=== PATIENT | female | born 1950 | race Caucasian/White ===

== ENCOUNTER 2018-05-22 11:58 | Inpatient (IN) | payer OTHER, MEDICAID ==
[~2018-05-22] VITALS: Ht 157.5 cm; Wt 94.8 kg
[2018-05-22 11:58] VITALS: BP_SYST 138
[2018-05-22] MEDS ORDERED: ASPIRIN 81 MG TAB.CHEW PO ONE (12:15)
[2018-05-22] MEDS ORDERED: NITROGLYCERIN 1 INCH (GM) OINT. TP ONE (12:15)
[2018-05-22] MEDS ORDERED: ASPI-1153 PO (12:18)
[2018-05-22] MEDS ORDERED: SERT100T PO (12:18)
[2018-05-22] MEDS ORDERED: DOCU250C14 PO (12:18)
[2018-05-22] MEDS ORDERED: INSU100V11 SQ (12:18)
[2018-05-22] MEDS ORDERED: CHOL500037 PO (12:18)
[2018-05-22] MEDS ORDERED: HYDR-1189 PO (12:18)
[2018-05-22] MEDS ORDERED: FURO-149 PO (12:18)
[2018-05-22] MEDS ORDERED: SEVE800T8 PO (12:18)
[2018-05-22] MEDS ORDERED: CAT.1 PO (12:18)
[2018-05-22] MEDS ORDERED: INSU10VI4 SUBCUT (12:18)
[2018-05-22] MEDS ORDERED: LIDP TP (12:18)
[2018-05-22] MEDS ORDERED: FOLI-43 PO (12:18)
[2018-05-22] MEDS ORDERED: NEPH PO (12:18)
[2018-05-22] MEDS ORDERED: ONDA4TAB5 PO (12:18)
[2018-05-22] MEDS ORDERED: HYDR-4038 PO (12:18)
[2018-05-22] MEDS ORDERED: DIPH25CA83 PO (12:18)
[2018-05-22] MEDS ORDERED: GABA-529 PO (12:18)
[2018-05-22 13:12] LABS: BASOPHILS % (AUTO) 0.3 % (0.0-2.0); EOSINOPHILS # (AUTO) 0.2 K/uL (0.0-0.4); EOSINOPHILS % (AUTO) 2.4 % (0.0-4.0); HEMOGLOBIN 10.4 g/dL (12.0-16.0); LYMPHOCYTES # (AUTO) 0.9 K/uL (1.0-5.5); LYMPHOCYTES % (AUTO) 12.1 % (20.5-51.5); MEAN CORPUSCULAR HEMOGLOBIN 35 pg (27-31); MEAN CORPUSCULAR HGB CONC 35 % (32-36); MEAN CORPUSCULAR VOLUME 101 fL (79.0-98.0); MONOCYTES # (AUTO) 0.6 K/uL (0.0-1.0); MONOCYTES % (AUTO) 7.7 % (1.7-9.3); NEUTROPHILS # (AUTO) 5.9 K/uL (1.8-7.7); NEUTROPHILS % (AUTO) 77.5 % (40.0-70.0); PLATELET COUNT (AUTO) 54 K/uL (130-430); RED BLOOD CELL COUNT(AUTO) 2.97 MIL/uL (4.2-6.2); RED CELL DISTRIBUTION WIDTH 13.6 % (9.0-15.0); WHITE BLOOD COUNT (AUTO) 7.7 K/uL (4.8-10.8)
[2018-05-22 13:19] LABS: COLOR,URINE YELLOW (YELLOW)
[2018-05-22 13:20] LABS: BILIRUBIN,URINE NEGATIVE (NEGATIVE); BLOOD, URINE TRACE (NEGATIVE); CLARITY/URINE CLOUDY (CLEAR); GLUCOSE,URINE NEGATIVE (NEGATIVE); KETONES,URINE NEGATIVE (NEGATIVE); LEUKOCYTE ESTERASE ,URINE 2+ (NEGATIVE); NITRITE, URINE NEGATIVE (NEGATIVE); PH,URINE 6.5 (5.0-8.0); PROTEIN URINE 3+ (NEGATIVE); UROBILINOGEN,URINE NEGATIVE (0.2-1.0)
[2018-05-22 13:29] LABS: INR 1.1 (0.8-1.2)
[2018-05-22 13:32] LABS: CALCIUM 8.5 mg/dL (8.4-11.0); CREATININE 5.16 mg/dL (0.55-1.30); POTASSIUM 4.1 mmol/L (3.5-5.1)
[2018-05-22 13:36] LABS: TOTAL BILIRUBIN 1.7 mg/dL (0.0-1.0)
[2018-05-22 13:42] LABS: BACTERIA,URINE MANY /HPF (None Seen); WBC,URINE 50-80 /HPF (0-3)
[2018-05-22 13:43] LABS: MUCUS,URINE None Seen /LPF (None Seen)
[2018-05-22] MEDS ORDERED: cefTRIAXone 1 GM IVPB PREMIX 50 ML IV ONE (14:15)
[2018-05-22] MEDS ORDERED: DIPHENHYDRAMINE HCL 25 MG CAPSULE PO PRN (16:30)
[2018-05-22] MEDS ORDERED: DEXTROSE 50% JECT 50 ML DISP.SYRIN IVP PRN (16:45)
[2018-05-22 16:55] VITALS: BP_SYST 126
[2018-05-22] MEDS ORDERED: ONDANSETRON HCL 4 MG/2 ML VIAL IVP PRN (17:00)
[2018-05-22] MEDS ORDERED: DOCUSATE SODIUM 100 MG CAPSULE PO PRN (17:00)
[2018-05-22] MEDS ORDERED: LORazepam 2 MG/ML VIAL IVP PRN (17:00)
[2018-05-22] MEDS ORDERED: MAGNESIUM SULFATE 50 ML IV PRN (17:00)
[2018-05-22] MEDS ORDERED: ZOLPIDEM TARTRATE 5 MG TABLET PO PRN (17:00)
[2018-05-22] MEDS ORDERED: MUPIROCIN 2% TOPICAL OINTMENT 22 GM NS PRN (17:00)
[2018-05-22] MEDS ORDERED: POTASSIUM CHLORIDE 20 MEQ TAB.PRT.SR PO PRN (17:00)
[2018-05-22 17:20] LABS: FREE T4 (FREE THYROXINE) 0.9 ng/dL (0.6-1.6); THYROID STIMULATING HORMONE 0.56 uIu/mL (0.34-4.82)
[2018-05-22] MEDS ORDERED: NON-FORMULARY MEDICATION (Sevelamer Carbonate (Renvela) 800 MG) PO SCH (18:00)
[2018-05-22] MEDS ORDERED: LACTOBACILLUS RHAMNOSUS GG 1 CAP CAPSULE PO ONE (19:21)
[2018-05-22] MEDS ORDERED: METOPROLOL TARTRATE 25 MG TABLET PO ONE (19:23)
[2018-05-22] MEDS ORDERED: SEVELAMER HCL 800 MG TABLET PO ONE (19:44)
[2018-05-22 20:00] VITALS: BP_SYST 131; BP_SYST 139
[2018-05-22] MEDS: LACTULOSE 20 GM/30 ML UDC PO ONE ×2 (20:06→20:14)
[2018-05-22] MEDS: LACTULOSE 20 GM/30 ML UDC PO SCH ×2 (20:07→20:14)
[2018-05-22] MEDS: hydrALAZINE HCL 25 MG TABLET PO SCH (20:11)
[2018-05-22] MEDS: FUROSEMIDE 40 MG TABLET PO SCH (20:12)
[2018-05-22] MEDS: INSULIN ASPART 100 UNITS/ML, 10 ML VIAL (NovoLOG) SUBCUT PRN (20:27)
[2018-05-22] MEDS: INSULIN Lispro Prot/Lispro MIX 75-25, 100 UNITS/ML, 10 ML VIAL SUBCUT SCH (20:28)
[2018-05-22] MEDS: DIPHENHYDRAMINE HCL/ZINC ACET 28.3 GM CREAM.GM. TP SCH (21:00)
[2018-05-23 00:20] VITALS: BP_SYST 104
[2018-05-23 01:31] LABS: BARBITURATE, URINE NEGATIVE (NEG <=200); BENZODIAZEPINE, URINE NEGATIVE (NEG <=150); CANNABINOID, URINE NEGATIVE (NEG <=50); COCAINE, URINE NEGATIVE (NEG <=150); METHAMPHETAMINES SCREEN,URINE NEGATIVE (NEG <=500); OPIATE, URINE NEGATIVE (NEG <=100); PHENCYCLIDINE SCREEN,URINE NEGATIVE (NEG <=25); UR TRICYCLIC ANTIDEPRESSANTS NEGATIVE (NEG <=300); URINE AMPHETAMINE NEGATIVE (NEG <=500); URINE METHADONE NEGATIVE (NEG <=200); URINE OXYCODONE SCREEN NEGATIVE (NEG <=100); URINE PROPOXYPHENE SCREEN NEGATIVE (NEG <=300)
[2018-05-23 05:05] LABS: BASOPHILS % (AUTO) 0.7 % (0.0-2.0); EOSINOPHILS # (AUTO) 0.3 K/uL (0.0-0.4); EOSINOPHILS % (AUTO) 4.4 % (0.0-4.0); LYMPHOCYTES % (AUTO) 17.2 % (20.5-51.5); MEAN CORPUSCULAR HEMOGLOBIN 34 pg (27-31); MEAN CORPUSCULAR HGB CONC 33 % (32-36); MEAN CORPUSCULAR VOLUME 101 fL (79.0-98.0); MONOCYTES # (AUTO) 0.7 K/uL (0.0-1.0); MONOCYTES % (AUTO) 11.4 % (1.7-9.3); PLATELET COUNT (AUTO) 61 K/uL (130-430); RED BLOOD CELL COUNT(AUTO) 2.68 MIL/uL (4.2-6.2); RED CELL DISTRIBUTION WIDTH 13.7 % (9.0-15.0)
[2018-05-23 05:19] LABS: ALBUMIN 2.6 g/dL (3.4-4.8); CALCIUM 8.2 mg/dL (8.4-11.0); CREATININE 6.09 mg/dL (0.55-1.30); PHOSPHORUS 4.7 mg/dL (2.7-4.5); POTASSIUM 4.4 mmol/L (3.5-5.1); TOTAL BILIRUBIN 1.2 mg/dL (0.0-1.0)
[2018-05-23 05:48] LABS: NEUTROPHILS % (AUTO) 66.3 % (40.0-70.0)
[2018-05-23] MEDS: INSULIN ASPART 100 UNITS/ML, 10 ML VIAL (NovoLOG) SUBCUT PRN ×4 (06:22→21:39)
[2018-05-23 08:19] LABS: T4 (THYROXINE) 4.5 ug/dL (4.5-12.0)
[2018-05-23 08:20] VITALS: BP_SYST 126
[2018-05-23] MEDS: METOPROLOL TARTRATE 25 MG TABLET PO SCH ×2 (09:00→20:23)
[2018-05-23] MEDS: LACTULOSE 20 GM/30 ML UDC PO SCH ×3 (09:00→20:23)
[2018-05-23] MEDS: hydrALAZINE HCL 25 MG TABLET PO SCH ×2 (09:00→20:24)
[2018-05-23] MEDS: DOCUSATE SODIUM 250 MG CAPSULE PO SCH (09:00)
[2018-05-23] MEDS: LIDOCAINE PATCH 5% 1 EA TP SCH (09:05)
[2018-05-23] MEDS: LACTOBACILLUS RHAMNOSUS GG 1 CAP CAPSULE PO SCH (09:06)
[2018-05-23] MEDS: FOLIC ACID 1 MG TABLET PO SCH (09:07)
[2018-05-23] MEDS: CHOLECALCIFEROL (VITAMIN D3) 2,000 UNIT TABLET PO SCH (09:07)
[2018-05-23] MEDS: SEVELAMER HCL 800 MG TABLET PO SCH ×3 (09:07→17:13)
[2018-05-23] MEDS: GABAPENTIN 100 MG CAPSULE PO SCH (09:08)
[2018-05-23] MEDS: NEPHROVITE, (FOLIC ACID/VITAMIN B COMP W-C 1 TAB) PO SCH (09:08)
[2018-05-23] MEDS: ASPIRIN 81 MG TABLET(ECOTRIN) PO SCH (09:09)
[2018-05-23] MEDS: FUROSEMIDE 40 MG TABLET PO SCH ×2 (09:09→20:21)
[2018-05-23] MEDS: cloNIDine HCL 0.1 MG TABLET PO SCH (09:12)
[2018-05-23] MEDS: SERTRALINE HCL 50 MG TABLET PO SCH (09:12)
[2018-05-23] MEDS: cefTRIAXone 1 GM in D5W 50 ML IV SCH (09:13)
[2018-05-23] MEDS: DIPHENHYDRAMINE HCL/ZINC ACET 28.3 GM CREAM.GM. TP SCH ×3 (09:14→21:38)
[2018-05-23] MEDS: INSULIN Lispro Prot/Lispro MIX 75-25, 100 UNITS/ML, 10 ML VIAL SUBCUT SCH ×2 (09:21→21:40)
[2018-05-23] MEDS ORDERED: RIFAXIMIN 550 MG TABLET PO ONE (10:45)
[2018-05-23] MEDS: NACL 0.9% 1,000 ML IV SCH (12:20)
[2018-05-23 12:45] VITALS: BP_SYST 126
[2018-05-23 17:15] VITALS: BP_SYST 115
[2018-05-23 20:00] VITALS: BP_SYST 104
[2018-05-23] MEDS: ACETAMINOPHEN 325 MG TABLET PO PRN (20:22)
[2018-05-23] MEDS: RIFAXIMIN 550 MG TABLET PO SCH (20:22)
[2018-05-23] MEDS: traZODone HCL 50 MG TABLET (DESYREL) PO PRN (22:55)
[2018-05-24] VITALS: BP_SYST 89
[2018-05-24] MEDS: ACETAMINOPHEN 325 MG TABLET PO PRN (06:38)
[2018-05-24 06:41] LABS: BASOPHILS % (AUTO) 0.7 % (0.0-2.0); EOSINOPHILS # (AUTO) 0.3 K/uL (0.0-0.4); EOSINOPHILS % (AUTO) 4.6 % (0.0-4.0); HEMATOCRIT 25.8 % (36-48); HEMOGLOBIN 8.5 g/dL (12.0-16.0); LYMPHOCYTES # (AUTO) 1.3 K/uL (1.0-5.5); LYMPHOCYTES % (AUTO) 20.2 % (20.5-51.5); MEAN CORPUSCULAR HEMOGLOBIN 34 pg (27-31); MEAN CORPUSCULAR HGB CONC 33 % (32-36); MEAN CORPUSCULAR VOLUME 102 fL (79.0-98.0); MONOCYTES # (AUTO) 0.7 K/uL (0.0-1.0); MONOCYTES % (AUTO) 10.5 % (1.7-9.3); NEUTROPHILS # (AUTO) 4.3 K/uL (1.8-7.7); RED BLOOD CELL COUNT(AUTO) 2.53 MIL/uL (4.2-6.2); RED CELL DISTRIBUTION WIDTH 13.9 % (9.0-15.0); WHITE BLOOD COUNT (AUTO) 6.6 K/uL (4.8-10.8)
[2018-05-24 07:01] LABS: CREATININE 7.04 mg/dL (0.55-1.30); PHOSPHORUS 5.6 mg/dL (2.7-4.5); POTASSIUM 4.7 mmol/L (3.5-5.1)
[2018-05-24 08:15] VITALS: BP_SYST 123
[2018-05-24] MEDS: METOPROLOL TARTRATE 25 MG TABLET PO SCH ×2 (08:24→20:19)
[2018-05-24] MEDS: hydrALAZINE HCL 25 MG TABLET PO SCH ×2 (08:24→20:19)
[2018-05-24] MEDS: cloNIDine HCL 0.1 MG TABLET PO SCH (08:24)
[2018-05-24 08:28] LABS: PLATELET COUNT (AUTO) 70 K/uL (130-430)
[2018-05-24] MEDS: SERTRALINE HCL 50 MG TABLET PO SCH (08:33)
[2018-05-24] MEDS: RIFAXIMIN 550 MG TABLET PO SCH ×2 (08:33→20:17)
[2018-05-24] MEDS: NEPHROVITE, (FOLIC ACID/VITAMIN B COMP W-C 1 TAB) PO SCH (08:33)
[2018-05-24] MEDS: GABAPENTIN 100 MG CAPSULE PO SCH (08:34)
[2018-05-24] MEDS: cefTRIAXone 1 GM in D5W 50 ML IV SCH (08:34)
[2018-05-24] MEDS: LACTULOSE 20 GM/30 ML UDC PO SCH ×3 (08:34→20:21)
[2018-05-24] MEDS: LACTOBACILLUS RHAMNOSUS GG 1 CAP CAPSULE PO SCH (08:34)
[2018-05-24] MEDS: CHOLECALCIFEROL (VITAMIN D3) 2,000 UNIT TABLET PO SCH (08:34)
[2018-05-24] MEDS: SEVELAMER HCL 800 MG TABLET PO SCH ×3 (08:34→17:07)
[2018-05-24] MEDS: FOLIC ACID 1 MG TABLET PO SCH (08:34)
[2018-05-24] MEDS: LIDOCAINE PATCH 5% 1 EA TP SCH (08:35)
[2018-05-24] MEDS: FUROSEMIDE 40 MG TABLET PO SCH ×2 (08:36→20:20)
[2018-05-24] MEDS: DOCUSATE SODIUM 250 MG CAPSULE PO SCH (08:42)
[2018-05-24] MEDS: ASPIRIN 81 MG TABLET(ECOTRIN) PO SCH (08:42)
[2018-05-24] MEDS: INSULIN Lispro Prot/Lispro MIX 75-25, 100 UNITS/ML, 10 ML VIAL SUBCUT SCH ×2 (08:46→20:58)
[2018-05-24] MEDS: DIPHENHYDRAMINE HCL/ZINC ACET 28.3 GM CREAM.GM. TP SCH ×3 (08:57→21:02)
[2018-05-24] MEDS: NACL 0.9% 1,000 ML IV SCH (10:45)
[2018-05-24] MEDS: NEOMYCIN SULFATE 500 MG TABLET PO SCH ×3 (11:45→23:38)
[2018-05-24] MEDS: INSULIN ASPART 100 UNITS/ML, 10 ML VIAL (NovoLOG) SUBCUT PRN ×3 (11:46→21:01)
[2018-05-24] MEDS: HYDROcodone/ACETAMIN 5-325 MG TAB (NORCO/ VICODIN) PO PRN ×2 (12:12→20:18)
[2018-05-24 12:21] VITALS: BP_SYST 123
[2018-05-24 16:57] VITALS: BP_SYST 139
[2018-05-24] MEDS: traZODone HCL 50 MG TABLET (DESYREL) PO PRN (22:49)
[2018-05-25 00:10] VITALS: BP_SYST 102
[2018-05-25] MEDS: NEOMYCIN SULFATE 500 MG TABLET PO SCH ×3 (05:52→17:35)
[2018-05-25 07:52] LABS: EOSINOPHILS # (AUTO) 0.3 K/uL (0.0-0.4); EOSINOPHILS % (AUTO) 5.1 % (0.0-4.0); HEMATOCRIT 25.9 % (36-48); MONOCYTES # (AUTO) 0.6 K/uL (0.0-1.0); RED BLOOD CELL COUNT(AUTO) 2.56 MIL/uL (4.2-6.2); WHITE BLOOD COUNT (AUTO) 6.3 K/uL (4.8-10.8)
[2018-05-25 08:09] LABS: CREATININE 5.61 mg/dL (0.55-1.30); PHOSPHORUS 5.3 mg/dL (2.7-4.5); POTASSIUM 4.2 mmol/L (3.5-5.1)
[2018-05-25 08:35] LABS: BASOPHILS % (AUTO) 0.7 % (0.0-2.0); HEMOGLOBIN 8.6 g/dL (12.0-16.0); LYMPHOCYTES # (AUTO) 1.2 K/uL (1.0-5.5); LYMPHOCYTES % (AUTO) 19.2 % (20.5-51.5); MEAN CORPUSCULAR HEMOGLOBIN 34 pg (27-31); MEAN CORPUSCULAR HGB CONC 33 % (32-36); MEAN CORPUSCULAR VOLUME 101 fL (79.0-98.0); MONOCYTES % (AUTO) 10.3 % (1.7-9.3); NEUTROPHILS # (AUTO) 4.2 K/uL (1.8-7.7); NEUTROPHILS % (AUTO) 64.7 % (40.0-70.0); RED CELL DISTRIBUTION WIDTH 13.7 % (9.0-15.0)
[2018-05-25] MEDS: LACTULOSE 20 GM/30 ML UDC PO SCH ×3 (09:00→20:22)
[2018-05-25] MEDS: cefTRIAXone 1 GM in D5W 50 ML IV SCH (09:24)
[2018-05-25] MEDS: cloNIDine HCL 0.1 MG TABLET PO SCH (09:26)
[2018-05-25] MEDS: RIFAXIMIN 550 MG TABLET PO SCH ×2 (09:27→20:19)
[2018-05-25] MEDS: CHOLECALCIFEROL (VITAMIN D3) 2,000 UNIT TABLET PO SCH (09:27)
[2018-05-25] MEDS: ASPIRIN 81 MG TABLET(ECOTRIN) PO SCH (09:27)
[2018-05-25] MEDS: LACTOBACILLUS RHAMNOSUS GG 1 CAP CAPSULE PO SCH (09:27)
[2018-05-25] MEDS: SERTRALINE HCL 50 MG TABLET PO SCH (09:27)
[2018-05-25] MEDS: FOLIC ACID 1 MG TABLET PO SCH (09:28)
[2018-05-25] MEDS: GABAPENTIN 100 MG CAPSULE PO SCH (09:28)
[2018-05-25] MEDS: NEPHROVITE, (FOLIC ACID/VITAMIN B COMP W-C 1 TAB) PO SCH (09:28)
[2018-05-25] MEDS: hydrALAZINE HCL 25 MG TABLET PO SCH ×2 (09:29→20:20)
[2018-05-25] MEDS: INSULIN Lispro Prot/Lispro MIX 75-25, 100 UNITS/ML, 10 ML VIAL SUBCUT SCH ×2 (09:30→20:37)
[2018-05-25] MEDS: DIPHENHYDRAMINE HCL/ZINC ACET 28.3 GM CREAM.GM. TP SCH ×3 (09:31→20:40)
[2018-05-25] MEDS: SEVELAMER HCL 800 MG TABLET PO SCH ×3 (09:40→17:35)
[2018-05-25] MEDS: FUROSEMIDE 40 MG TABLET PO SCH ×2 (09:41→20:21)
[2018-05-25] MEDS: METOPROLOL TARTRATE 25 MG TABLET PO SCH ×2 (09:41→20:22)
[2018-05-25] MEDS: DOCUSATE SODIUM 250 MG CAPSULE PO SCH (09:42)
[2018-05-25 11:55] LABS: PLATELET COUNT (AUTO) 63 K/uL (130-430)
[2018-05-25] MEDS: INSULIN ASPART 100 UNITS/ML, 10 ML VIAL (NovoLOG) SUBCUT PRN ×3 (12:40→20:39)
[2018-05-25] MEDS: NACL 0.9% 1,000 ML IV SCH (12:52)
[2018-05-25] MEDS: HYDROcodone/ACETAMIN 5-325 MG TAB (NORCO/ VICODIN) PO PRN ×2 (14:10→21:28)
[2018-05-25 16:00] VITALS: BP_SYST 105
[2018-05-25] MEDS: LIDOCAINE PATCH 5% 1 EA TP SCH (17:36)
[2018-05-25 17:40] VITALS: BP_SYST 105
[2018-05-26 00:05] VITALS: BP_SYST 116
[2018-05-26] MEDS: NEOMYCIN SULFATE 500 MG TABLET PO SCH ×5 (00:13→23:07)
[2018-05-26] MEDS: HYDROcodone/ACETAMIN 5-325 MG TAB (NORCO/ VICODIN) PO PRN ×3 (04:42→22:13)
[2018-05-26] MEDS: INSULIN ASPART 100 UNITS/ML, 10 ML VIAL (NovoLOG) SUBCUT PRN ×4 (05:48→22:09)
[2018-05-26 06:32] LABS: BASOPHILS # (AUTO) 0.1 K/uL (0.0-0.2); BASOPHILS % (AUTO) 1.2 % (0.0-2.0); EOSINOPHILS # (AUTO) 0.3 K/uL (0.0-0.4); EOSINOPHILS % (AUTO) 5.1 % (0.0-4.0); HEMATOCRIT 26.3 % (36-48); LYMPHOCYTES # (AUTO) 0.8 K/uL (1.0-5.5); LYMPHOCYTES % (AUTO) 14.8 % (20.5-51.5); MEAN CORPUSCULAR HEMOGLOBIN 34 pg (27-31); MEAN CORPUSCULAR HGB CONC 34 % (32-36); MEAN CORPUSCULAR VOLUME 102 fL (79.0-98.0); MONOCYTES # (AUTO) 0.6 K/uL (0.0-1.0); MONOCYTES % (AUTO) 10.1 % (1.7-9.3); NEUTROPHILS # (AUTO) 3.9 K/uL (1.8-7.7); NEUTROPHILS % (AUTO) 68.8 % (40.0-70.0); RED BLOOD CELL COUNT(AUTO) 2.59 MIL/uL (4.2-6.2); RED CELL DISTRIBUTION WIDTH 13.9 % (9.0-15.0); WHITE BLOOD COUNT (AUTO) 5.7 K/uL (4.8-10.8)
[2018-05-26 06:46] LABS: CALCIUM 8.1 mg/dL (8.4-11.0); CREATININE 6.65 mg/dL (0.55-1.30); PHOSPHORUS 6.2 mg/dL (2.7-4.5); POTASSIUM 4.5 mmol/L (3.5-5.1)
[2018-05-26 07:21] LABS: HEMOGLOBIN 8.9 g/dL (12.0-16.0)
[2018-05-26 08:00] VITALS: BP_SYST 138
[2018-05-26] MEDS: LACTULOSE 20 GM/30 ML UDC PO SCH ×3 (09:00→22:00)
[2018-05-26] MEDS: cefTRIAXone 1 GM in D5W 50 ML IV SCH (09:52)
[2018-05-26] MEDS: LIDOCAINE PATCH 5% 1 EA TP SCH (09:52)
[2018-05-26] MEDS: CHOLECALCIFEROL (VITAMIN D3) 2,000 UNIT TABLET PO SCH (09:53)
[2018-05-26] MEDS: SEVELAMER HCL 800 MG TABLET PO SCH ×3 (09:53→17:47)
[2018-05-26] MEDS: DIPHENHYDRAMINE HCL/ZINC ACET 28.3 GM CREAM.GM. TP SCH ×3 (09:53→22:13)
[2018-05-26 09:56] LABS: PLATELET COUNT (AUTO) 67 K/uL (130-430)
[2018-05-26] MEDS: FOLIC ACID 1 MG TABLET PO SCH (09:56)
[2018-05-26] MEDS: hydrALAZINE HCL 25 MG TABLET PO SCH ×2 (09:56→22:00)
[2018-05-26] MEDS: cloNIDine HCL 0.1 MG TABLET PO SCH (09:57)
[2018-05-26] MEDS: DOCUSATE SODIUM 250 MG CAPSULE PO SCH (09:57)
[2018-05-26] MEDS: ASPIRIN 81 MG TABLET(ECOTRIN) PO SCH (09:57)
[2018-05-26] MEDS: RIFAXIMIN 550 MG TABLET PO SCH ×2 (09:57→22:00)
[2018-05-26] MEDS: GABAPENTIN 100 MG CAPSULE PO SCH (09:57)
[2018-05-26] MEDS: FUROSEMIDE 40 MG TABLET PO SCH ×2 (09:57→22:02)
[2018-05-26] MEDS: SERTRALINE HCL 50 MG TABLET PO SCH (09:58)
[2018-05-26] MEDS: NEPHROVITE, (FOLIC ACID/VITAMIN B COMP W-C 1 TAB) PO SCH (09:58)
[2018-05-26] MEDS: METOPROLOL TARTRATE 25 MG TABLET PO SCH ×2 (09:59→22:01)
[2018-05-26] MEDS: LACTOBACILLUS RHAMNOSUS GG 1 CAP CAPSULE PO SCH (09:59)
[2018-05-26] MEDS: INSULIN Lispro Prot/Lispro MIX 75-25, 100 UNITS/ML, 10 ML VIAL SUBCUT SCH ×2 (10:13→22:07)
[2018-05-26] MEDS: NACL 0.9% 1,000 ML IV SCH (11:47)
[2018-05-26 12:05] VITALS: BP_SYST 117
[2018-05-26 16:15] VITALS: BP_SYST 125
[2018-05-26] MEDS: EPOETIN ALFA 10,000 UNITS/ML VIAL SUBCUT SCH (17:47)
[2018-05-26 19:45] VITALS: BP_SYST 106
[2018-05-27] VITALS: BP_SYST 122
[2018-05-27] MEDS: MORPHINE 2 MG/ML INJ. SYRINGE IVP PRN ×5 (02:42→22:04)
[2018-05-27] MEDS: NEOMYCIN SULFATE 500 MG TABLET PO SCH ×4 (06:20→23:51)
[2018-05-27] MEDS: INSULIN ASPART 100 UNITS/ML, 10 ML VIAL (NovoLOG) SUBCUT PRN ×4 (06:23→22:11)
[2018-05-27 06:50] LABS: BASOPHILS % (AUTO) 0.6 % (0.0-2.0); EOSINOPHILS # (AUTO) 0.2 K/uL (0.0-0.4); EOSINOPHILS % (AUTO) 3.1 % (0.0-4.0); HEMATOCRIT 25.4 % (36-48); HEMOGLOBIN 8.8 g/dL (12.0-16.0); MEAN CORPUSCULAR HEMOGLOBIN 35 pg (27-31); MEAN CORPUSCULAR HGB CONC 35 % (32-36); MEAN CORPUSCULAR VOLUME 101 fL (79.0-98.0); MONOCYTES # (AUTO) 0.6 K/uL (0.0-1.0); MONOCYTES % (AUTO) 9.3 % (1.7-9.3); NEUTROPHILS # (AUTO) 5.1 K/uL (1.8-7.7); RED BLOOD CELL COUNT(AUTO) 2.51 MIL/uL (4.2-6.2); RED CELL DISTRIBUTION WIDTH 13.6 % (9.0-15.0); WHITE BLOOD COUNT (AUTO) 6.9 K/uL (4.8-10.8)
[2018-05-27 07:07] LABS: PHOSPHORUS 6.9 mg/dL (2.7-4.5); POTASSIUM 4.8 mmol/L (3.5-5.1)
[2018-05-27 07:28] LABS: CREATININE 7.56 mg/dL (0.55-1.30)
[2018-05-27 08:00] VITALS: BP_SYST 144
[2018-05-27] MEDS: LACTOBACILLUS RHAMNOSUS GG 1 CAP CAPSULE PO SCH (08:51)
[2018-05-27] MEDS: SEVELAMER HCL 800 MG TABLET PO SCH ×3 (08:51→17:18)
[2018-05-27] MEDS: DOCUSATE SODIUM 250 MG CAPSULE PO SCH (08:52)
[2018-05-27] MEDS: ASPIRIN 81 MG TABLET(ECOTRIN) PO SCH (08:52)
[2018-05-27] MEDS: SERTRALINE HCL 50 MG TABLET PO SCH (08:52)
[2018-05-27] MEDS: RIFAXIMIN 550 MG TABLET PO SCH ×2 (08:52→21:55)
[2018-05-27] MEDS: NEPHROVITE, (FOLIC ACID/VITAMIN B COMP W-C 1 TAB) PO SCH (08:53)
[2018-05-27] MEDS: CHOLECALCIFEROL (VITAMIN D3) 2,000 UNIT TABLET PO SCH (08:53)
[2018-05-27] MEDS: GABAPENTIN 100 MG CAPSULE PO SCH (08:53)
[2018-05-27] MEDS: FOLIC ACID 1 MG TABLET PO SCH (08:53)
[2018-05-27] MEDS: FUROSEMIDE 40 MG TABLET PO SCH ×2 (08:55→21:58)
[2018-05-27] MEDS: METOPROLOL TARTRATE 25 MG TABLET PO SCH ×2 (08:55→21:59)
[2018-05-27] MEDS: hydrALAZINE HCL 25 MG TABLET PO SCH ×2 (08:56→22:08)
[2018-05-27] MEDS: cloNIDine HCL 0.1 MG TABLET PO SCH (08:56)
[2018-05-27] MEDS: LACTULOSE 20 GM/30 ML UDC PO SCH ×3 (08:58→21:55)
[2018-05-27] MEDS: LIDOCAINE PATCH 5% 1 EA TP SCH (09:00)
[2018-05-27] MEDS: DIPHENHYDRAMINE HCL/ZINC ACET 28.3 GM CREAM.GM. TP SCH ×3 (09:04→22:00)
[2018-05-27] MEDS: INSULIN Lispro Prot/Lispro MIX 75-25, 100 UNITS/ML, 10 ML VIAL SUBCUT SCH ×2 (09:11→22:14)
[2018-05-27] MEDS: cefTRIAXone 1 GM in D5W 50 ML IV SCH (09:12)
[2018-05-27 10:05] LABS: PLATELET COUNT (AUTO) 73 K/uL (130-430)
[2018-05-27] MEDS: NACL 0.9% 1,000 ML IV SCH (11:14)
[2018-05-27 12:25] VITALS: BP_SYST 118
[2018-05-27 16:25] VITALS: BP_SYST 136
[2018-05-27 19:55] VITALS: BP_SYST 115
[2018-05-28 01:01] VITALS: BP_SYST 134
[2018-05-28] MEDS: NEOMYCIN SULFATE 500 MG TABLET PO SCH ×3 (06:34→17:08)
[2018-05-28] MEDS: INSULIN ASPART 100 UNITS/ML, 10 ML VIAL (NovoLOG) SUBCUT PRN ×3 (06:38→22:15)
[2018-05-28 06:39] LABS: CALCIUM 8.1 mg/dL (8.4-11.0); CREATININE 5.27 mg/dL (0.55-1.30)
[2018-05-28 06:43] LABS: BASOPHILS % (AUTO) 0.4 % (0.0-2.0); EOSINOPHILS # (AUTO) 0.3 K/uL (0.0-0.4); EOSINOPHILS % (AUTO) 3.7 % (0.0-4.0); HEMATOCRIT 25.7 % (36-48); HEMOGLOBIN 8.5 g/dL (12.0-16.0); LYMPHOCYTES # (AUTO) 1.1 K/uL (1.0-5.5); LYMPHOCYTES % (AUTO) 15.7 % (20.5-51.5); MEAN CORPUSCULAR HEMOGLOBIN 34 pg (27-31); MEAN CORPUSCULAR HGB CONC 33 % (32-36); MEAN CORPUSCULAR VOLUME 102 fL (79.0-98.0); MONOCYTES # (AUTO) 0.8 K/uL (0.0-1.0); MONOCYTES % (AUTO) 11.5 % (1.7-9.3); NEUTROPHILS # (AUTO) 4.7 K/uL (1.8-7.7); NEUTROPHILS % (AUTO) 68.7 % (40.0-70.0); PLATELET COUNT (AUTO) 79 K/uL (130-430); RED BLOOD CELL COUNT(AUTO) 2.53 MIL/uL (4.2-6.2); RED CELL DISTRIBUTION WIDTH 13.6 % (9.0-15.0); WHITE BLOOD COUNT (AUTO) 6.9 K/uL (4.8-10.8)
[2018-05-28 08:00] VITALS: BP_SYST 137
[2018-05-28] MEDS: INSULIN Lispro Prot/Lispro MIX 75-25, 100 UNITS/ML, 10 ML VIAL SUBCUT SCH ×2 (08:23→22:16)
[2018-05-28] MEDS: NEPHROVITE, (FOLIC ACID/VITAMIN B COMP W-C 1 TAB) PO SCH (08:24)
[2018-05-28] MEDS: cefTRIAXone 1 GM in D5W 50 ML IV SCH (08:24)
[2018-05-28] MEDS: LACTULOSE 20 GM/30 ML UDC PO SCH ×3 (08:24→22:22)
[2018-05-28] MEDS: SERTRALINE HCL 50 MG TABLET PO SCH (08:24)
[2018-05-28] MEDS: LIDOCAINE PATCH 5% 1 EA TP SCH (08:24)
[2018-05-28] MEDS: GABAPENTIN 100 MG CAPSULE PO SCH (08:25)
[2018-05-28] MEDS: ASPIRIN 81 MG TABLET(ECOTRIN) PO SCH (08:25)
[2018-05-28] MEDS: CHOLECALCIFEROL (VITAMIN D3) 2,000 UNIT TABLET PO SCH (08:25)
[2018-05-28] MEDS: FOLIC ACID 1 MG TABLET PO SCH (08:25)
[2018-05-28] MEDS: DOCUSATE SODIUM 250 MG CAPSULE PO SCH (08:25)
[2018-05-28] MEDS: LACTOBACILLUS RHAMNOSUS GG 1 CAP CAPSULE PO SCH (08:25)
[2018-05-28] MEDS: RIFAXIMIN 550 MG TABLET PO SCH ×2 (08:25→22:19)
[2018-05-28] MEDS: SEVELAMER HCL 800 MG TABLET PO SCH ×3 (08:25→17:07)
[2018-05-28] MEDS: FUROSEMIDE 40 MG TABLET PO SCH ×2 (08:26→22:19)
[2018-05-28] MEDS: cloNIDine HCL 0.1 MG TABLET PO SCH (08:26)
[2018-05-28] MEDS: hydrALAZINE HCL 25 MG TABLET PO SCH ×2 (08:29→22:20)
[2018-05-28] MEDS: METOPROLOL TARTRATE 25 MG TABLET PO SCH ×2 (08:29→22:20)
[2018-05-28] MEDS: HYDROcodone/ACETAMIN 5-325 MG TAB (NORCO/ VICODIN) PO PRN (08:31)
[2018-05-28] MEDS: DIPHENHYDRAMINE HCL/ZINC ACET 28.3 GM CREAM.GM. TP SCH ×3 (08:32→22:21)
[2018-05-28 08:57] LABS: ALBUMIN 2.8 g/dL (3.4-4.8); BILIRUBIN,DIRECT 0.9 mg/dL (0.0-0.3); TOTAL BILIRUBIN 1.2 mg/dL (0.0-1.0)
[2018-05-28] MEDS: NACL 0.9% 1,000 ML IV SCH (10:41)
[2018-05-28 12:35] VITALS: BP_SYST 130
[2018-05-28 16:30] VITALS: BP_SYST 116
[2018-05-28] MEDS: EPOETIN ALFA 10,000 UNITS/ML VIAL SUBCUT SCH (16:30)
[2018-05-28] MEDS: MORPHINE 2 MG/ML INJ. SYRINGE IVP PRN ×2 (16:30→22:08)
[2018-05-28 19:46] VITALS: BP_SYST 114
[2018-05-29] VITALS: BP_SYST 118
[2018-05-29] MEDS: NEOMYCIN SULFATE 500 MG TABLET PO SCH ×4 (05:20→17:18)
[2018-05-29] MEDS: MORPHINE 2 MG/ML INJ. SYRINGE IVP PRN ×2 (06:47→11:58)
[2018-05-29 07:29] LABS: ALBUMIN 2.6 g/dL (3.4-4.8); BILIRUBIN,DIRECT 0.8 mg/dL (0.0-0.3); TOTAL BILIRUBIN 1.1 mg/dL (0.0-1.0)
[2018-05-29] MEDS: DOCUSATE SODIUM 250 MG CAPSULE PO SCH (09:00)
[2018-05-29] MEDS: LIDOCAINE PATCH 5% 1 EA TP SCH (09:00)
[2018-05-29] MEDS: cefTRIAXone 1 GM in D5W 50 ML IV SCH (10:41)
[2018-05-29] MEDS: SERTRALINE HCL 50 MG TABLET PO SCH (10:42)
[2018-05-29] MEDS: RIFAXIMIN 550 MG TABLET PO SCH ×2 (10:42→20:45)
[2018-05-29] MEDS: CHOLECALCIFEROL (VITAMIN D3) 2,000 UNIT TABLET PO SCH (10:42)
[2018-05-29] MEDS: FOLIC ACID 1 MG TABLET PO SCH (10:43)
[2018-05-29] MEDS: LACTOBACILLUS RHAMNOSUS GG 1 CAP CAPSULE PO SCH (10:43)
[2018-05-29] MEDS: GABAPENTIN 100 MG CAPSULE PO SCH (10:43)
[2018-05-29] MEDS: NEPHROVITE, (FOLIC ACID/VITAMIN B COMP W-C 1 TAB) PO SCH (10:43)
[2018-05-29] MEDS: SEVELAMER HCL 800 MG TABLET PO SCH ×3 (10:43→17:18)
[2018-05-29] MEDS: ASPIRIN 81 MG TABLET(ECOTRIN) PO SCH (10:43)
[2018-05-29] MEDS: DIPHENHYDRAMINE HCL/ZINC ACET 28.3 GM CREAM.GM. TP SCH ×3 (10:44→20:42)
[2018-05-29] MEDS: NACL 0.9% 1,000 ML IV SCH (10:45)
[2018-05-29] MEDS: LACTULOSE 20 GM/30 ML UDC PO SCH ×4 (10:50→20:46)
[2018-05-29 10:51] VITALS: BP_SYST 133
[2018-05-29] MEDS: INSULIN Lispro Prot/Lispro MIX 75-25, 100 UNITS/ML, 10 ML VIAL SUBCUT SCH ×2 (11:01→20:49)
[2018-05-29 12:00] VITALS: BP_SYST 133
[2018-05-29] MEDS: INSULIN ASPART 100 UNITS/ML, 10 ML VIAL (NovoLOG) SUBCUT PRN ×3 (12:01→20:51)
[2018-05-29] MEDS: hydrALAZINE HCL 25 MG TABLET PO SCH ×2 (15:40→20:43)
[2018-05-29] MEDS: METOPROLOL TARTRATE 25 MG TABLET PO SCH ×2 (15:40→20:45)
[2018-05-29] MEDS: cloNIDine HCL 0.1 MG TABLET PO SCH (15:41)
[2018-05-29] MEDS: FUROSEMIDE 40 MG TABLET PO SCH ×2 (15:41→20:44)
[2018-05-29 16:00] VITALS: BP_SYST 125
[2018-05-29 17:30] VITALS: BP_SYST 125
== END 2018-05-29 21:03 | DRG 441 ==
LOC: SED 11:58 → STU 15:55 → SMU 05-25 12:58
PROVIDERS: ADMIT Family Medicine; ATTEND Family Medicine
PROC: 5A1D70Z Performance of Urinary Filtration, Intermittent, Less than 6 Hours Per Day (ICD-10-PCS; principal; 2018-05-24)
PROC: 5A1D70Z Performance of Urinary Filtration, Intermittent, Less than 6 Hours Per Day (ICD-10-PCS; 2018-05-27)
PROC: 5A1D70Z Performance of Urinary Filtration, Intermittent, Less than 6 Hours Per Day (ICD-10-PCS; 2018-05-29)
DX: K72.90 Hepatic failure, unspecified without coma (principal); N18.6 End stage renal disease; I50.43 Acute on chronic combined systolic (congestive) and diastolic (congestive) heart failure; E43 Unspecified severe protein-calorie malnutrition; J18.9 Pneumonia, unspecified organism; N17.0 Acute kidney failure with tubular necrosis; I13.2 Hypertensive heart and chronic kidney disease with heart failure and with stage 5 chronic kidney disease, or end stage renal disease; F11.23 Opioid dependence with withdrawal; N39.0 Urinary tract infection, site not specified; M94.0 Chondrocostal junction syndrome [Tietze]; D69.6 Thrombocytopenia, unspecified; E11.22 Type 2 diabetes mellitus with diabetic chronic kidney disease; F03.90 Unspecified dementia, unspecified severity, without behavioral disturbance, psychotic disturbance, mood disturbance, and anxiety; D63.8 Anemia in other chronic diseases classified elsewhere; F32.9 Major depressive disorder, single episode, unspecified; R07.89 Other chest pain; F41.9 Anxiety disorder, unspecified; E66.01 Morbid (severe) obesity due to excess calories; E83.39 Other disorders of phosphorus metabolism; E11.42 Type 2 diabetes mellitus with diabetic polyneuropathy; G89.29 Other chronic pain; K74.60 Unspecified cirrhosis of liver; Z90.49 Acquired absence of other specified parts of digestive tract; Z90.710 Acquired absence of both cervix and uterus; Z86.73 Personal history of transient ischemic attack (TIA), and cerebral infarction without residual deficits; Z87.891 Personal history of nicotine dependence; Z86.011 Personal history of benign neoplasm of the brain; Z86.010 Personal history of colon polyps; Z99.2 Dependence on renal dialysis; Z68.38 Body mass index [BMI] 38.0-38.9, adult; Z88.8 Allergy status to other drugs, medicaments and biological substances; Z88.6 Allergy status to analgesic agent; Z88.1 Allergy status to other antibiotic agents; Z88.5 Allergy status to narcotic agent; Z91.048 Other nonmedicinal substance allergy status; Z79.899 Other long term (current) drug therapy; Z79.82 Long term (current) use of aspirin; Z98.51 Tubal ligation status
CPT/HCPCS: 36415; 70450-TC; 71045; 72125-TC; 76536-TC; 76700-TC; 80048; 80053; 80061; 80076; 80307; 81000-TC; 82140-TC; 82150-TC; 82248-TC; 82962; 83605; 83615-TC; 83690-TC; 83735-TC; 83880; 84100-TC; 84436; 84439; 84443-TC; 84479; 84480; 84484; 85025; 85610-TC; 87040-TC; 87081; 87086; 87186-TC; 90935; 90937; 93005; 93306; 94010; 96365; 97110-GP; 97116-GP; 97530-GP; 99285; J0696; J0885; J1815; J2270; J7030; J7040; J7060

== ENCOUNTER 2018-09-13 10:37 | Inpatient (IN) | payer OTHER, MEDICAID ==
[~2018-09-13] VITALS: Ht 157.5 cm; Wt 100.2 kg
[~2018-09-13 10:37] MED LIST: ASPI-1153 PO; CAT.1 PO; CHOL500037 PO; DIPH25CA83 PO; DOCU250C14 PO; FOLI-43 PO; FURO-149 PO; GABA-529 PO; HYDR-1189 PO; HYDR-4038 PO; INSU100V11 SQ; INSU10VI4 SUBCUT; LIDP TP; NEPH PO; ONDA4TAB5 PO; SERT100T PO; SEVE800T8 PO
[2018-09-13 10:40] VITALS: BP_SYST 141
[2018-09-13] MEDS ORDERED: NITROGLYCERIN 1 INCH (GM) OINT. TD ONE (10:45)
[2018-09-13 11:12] LABS: BASOPHILS % (AUTO) 0.2 % (0.0-2.0); EOSINOPHILS # (AUTO) 0.2 K/uL (0.0-0.4); HEMATOCRIT 28.4 % (36-48); HEMOGLOBIN 8.9 g/dL (12.0-16.0); LYMPHOCYTES # (AUTO) 0.9 K/uL (1.0-5.5); LYMPHOCYTES % (AUTO) 12.5 % (20.5-51.5); MEAN CORPUSCULAR HEMOGLOBIN 32 pg (27-31); MEAN CORPUSCULAR HGB CONC 32 % (32-36); MEAN CORPUSCULAR VOLUME 101 fL (79.0-98.0); MONOCYTES # (AUTO) 0.3 K/uL (0.0-1.0); MONOCYTES % (AUTO) 4.5 % (1.7-9.3); NEUTROPHILS # (AUTO) 6.1 K/uL (1.8-7.7); NEUTROPHILS % (AUTO) 79.8 % (40.0-70.0); PLATELET COUNT (AUTO) 54 K/uL (130-430); RED BLOOD CELL COUNT(AUTO) 2.81 MIL/uL (4.2-6.2); WHITE BLOOD COUNT (AUTO) 7.5 K/uL (4.8-10.8)
[2018-09-13 11:22] LABS: CALCIUM 8.6 mg/dL (8.4-11.0); CREATININE 3.93 mg/dL (0.55-1.30); POTASSIUM 4.2 mmol/L (3.5-5.1)
[2018-09-13 11:27] LABS: ALBUMIN 2.5 g/dL (3.4-4.8); PHOSPHORUS 2.6 mg/dL (2.7-4.5)
[2018-09-13 11:30] LABS: INR 1.2 (0.8-1.2); PROTHROMBIN TIME 12.1 SECS (9.5-12.5)
[2018-09-13] MEDS ORDERED: ONDANSETRON HCL 4 MG/2 ML VIAL IVP PRN (15:15)
[2018-09-13] MEDS ORDERED: ZOLPIDEM TARTRATE 5 MG TABLET PO PRN ×2 (15:15)
[2018-09-13] MEDS ORDERED: DEXTROSE 50% JECT 50 ML DISP.SYRIN IVP PRN (15:15)
[2018-09-13] MEDS ORDERED: DOCUSATE SODIUM 100 MG CAPSULE PO PRN (15:15)
[2018-09-13] MEDS ORDERED: MUPIROCIN 2% TOPICAL OINTMENT 22 GM NS PRN (15:15)
[2018-09-13] MEDS ORDERED: LORazepam 2 MG/ML VIAL IVP PRN ×2 (15:15)
[2018-09-13] MEDS ORDERED: POTASSIUM CHLORIDE 20 MEQ TAB.PRT.SR PO PRN (15:15)
[2018-09-13] MEDS ORDERED: MAGNESIUM SULFATE 50 ML IV PRN (15:15)
[2018-09-13] MEDS ORDERED: NITROGLYCERIN 0.4 MG TAB.SUBL SL PRN (15:15)
[2018-09-13] MEDS ORDERED: ACETAMINOPHEN 325 MG TABLET PO PRN ×2 (15:15)
[2018-09-13] MEDS ORDERED: LIDOCAINE PATCH 5% 1 EA TP PRN (15:15)
[2018-09-13] MEDS ORDERED: PIPERACILLIN/TAZO 2.25G/DEX-IS 50 ML IV ONE (15:15)
[2018-09-13 15:25] VITALS: BP_SYST 132
[2018-09-13 15:30] VITALS: BP_SYST 132
[2018-09-13] MEDS: INSULIN NPH/REGULAR 70-30, 100 UNITS/ML, 10 ML VIAL SUBCUT SCH (17:15)
[2018-09-13] MEDS: INSULIN ASPART 100 UNITS/ML, 10 ML VIAL (NovoLOG) SUBCUT PRN ×2 (17:22→21:47)
[2018-09-13 20:00] VITALS: BP_SYST 154
[2018-09-13] MEDS ORDERED: HEPARIN SODIUM,PORCINE 5000 UNITS/ML VIAL IVP SCH (21:00)
[2018-09-13] MEDS ORDERED: INSULIN Lispro Prot/Lispro MIX 75-25, 100 UNITS/ML, 10 ML VIAL SUBCUT SCH (21:00)
[2018-09-13] MEDS ORDERED: FUROSEMIDE 40 MG TABLET PO SCH (21:00)
[2018-09-13] MEDS ORDERED: HEPARIN SODIUM,PORCINE 5000 UNITS/ML VIAL SUBCUT SCH (21:00)
[2018-09-13] MEDS: HYDROcodone/ACETAMIN 5-325 MG TAB (NORCO/ VICODIN) PO PRN (21:30)
[2018-09-13] MEDS: hydrALAZINE HCL 25 MG TABLET PO SCH (23:25)
[2018-09-13] MEDS: PIPERACILLIN/TAZO 2.25G/DEX-IS 50 ML IV SCH (23:26)
[2018-09-13] MEDS: METOPROLOL TARTRATE 25 MG TABLET PO SCH (23:26)
[2018-09-14] VITALS (8 sets, daily range): BP systolic 92–114
[2018-09-14] MEDS: PIPERACILLIN/TAZO 2.25G/DEX-IS 50 ML IV SCH ×3 (05:43→21:05)
[2018-09-14 06:17] LABS: BASOPHILS % (AUTO) 0.3 % (0.0-2.0); EOSINOPHILS # (AUTO) 0.2 K/uL (0.0-0.4); HEMATOCRIT 25.4 % (36-48); HEMOGLOBIN 8.1 g/dL (12.0-16.0); LYMPHOCYTES # (AUTO) 1.1 K/uL (1.0-5.5); LYMPHOCYTES % (AUTO) 14.5 % (20.5-51.5); MEAN CORPUSCULAR HEMOGLOBIN 33 pg (27-31); MEAN CORPUSCULAR HGB CONC 32 % (32-36); MEAN CORPUSCULAR VOLUME 102 fL (79.0-98.0); MONOCYTES # (AUTO) 0.6 K/uL (0.0-1.0); MONOCYTES % (AUTO) 7.8 % (1.7-9.3); PLATELET COUNT (AUTO) 51 K/uL (130-430); RED BLOOD CELL COUNT(AUTO) 2.49 MIL/uL (4.2-6.2); RED CELL DISTRIBUTION WIDTH 18.8 % (9.0-15.0); WHITE BLOOD COUNT (AUTO) 7.9 K/uL (4.8-10.8)
[2018-09-14] MEDS: INSULIN ASPART 100 UNITS/ML, 10 ML VIAL (NovoLOG) SUBCUT PRN ×2 (06:22→17:24)
[2018-09-14] MEDS: INSULIN NPH/REGULAR 70-30, 100 UNITS/ML, 10 ML VIAL SUBCUT SCH ×2 (06:24→17:23)
[2018-09-14 07:01] LABS: CALCIUM 8.4 mg/dL (8.4-11.0); CREATININE 2.97 mg/dL (0.55-1.30); POTASSIUM 3.8 mmol/L (3.5-5.1)
[2018-09-14] MEDS: CLOPIDOGREL BISULFATE 75 MG TABLET PO SCH ×2 (09:00→09:33)
[2018-09-14] MEDS: METOPROLOL TARTRATE 25 MG TABLET PO SCH ×2 (09:00→21:00)
[2018-09-14] MEDS ORDERED: ASPIRIN 81 MG TAB.CHEW PO SCH (09:00)
[2018-09-14] MEDS: hydrALAZINE HCL 25 MG TABLET PO SCH ×2 (09:00→21:00)
[2018-09-14] MEDS: FUROSEMIDE 40 MG TABLET PO SCH (09:00)
[2018-09-14] MEDS ORDERED: cloNIDine HCL 0.1 MG TABLET PO SCH (09:00)
[2018-09-14 09:14] LABS: NEUTROPHILS % (AUTO) 74.4 % (40.0-70.0)
[2018-09-14] MEDS: SERTRALINE HCL 50 MG TABLET PO SCH (09:32)
[2018-09-14] MEDS: GABAPENTIN 100 MG CAPSULE PO SCH (09:33)
[2018-09-14] MEDS: CALCIUM CARBONATE/VITAMIN D3 1 TAB TABLET PO SCH (09:33)
[2018-09-14] MEDS: FOLIC ACID 1 MG TABLET PO SCH (09:33)
[2018-09-14] MEDS: ASPIRIN 81 MG TABLET(ECOTRIN) PO SCH (09:33)
[2018-09-14] MEDS: DOCUSATE SODIUM 250 MG CAPSULE PO SCH (09:33)
[2018-09-14] MEDS: HYDROcodone/ACETAMIN 5-325 MG TAB (NORCO/ VICODIN) PO PRN ×2 (09:48→21:03)
[2018-09-14] MEDS: EPOETIN ALFA 10,000 UNITS/ML VIAL SUBCUT SCH (17:27)
[2018-09-14] MEDS: IPRATROPIUM/ALBUTEROL SULFATE 3 ML AMPUL.NEB (DUONEB) INH SCH (19:23)
[2018-09-15 04:00] VITALS: BP_SYST 102
[2018-09-15] MEDS: PIPERACILLIN/TAZO 2.25G/DEX-IS 50 ML IV SCH ×3 (06:03→21:32)
[2018-09-15] MEDS: INSULIN NPH/REGULAR 70-30, 100 UNITS/ML, 10 ML VIAL SUBCUT SCH ×2 (06:12→16:29)
[2018-09-15 06:17] LABS: BASOPHILS # (AUTO) 0.1 K/uL (0.0-0.2); BASOPHILS % (AUTO) 1.1 % (0.0-2.0); EOSINOPHILS # (AUTO) 0.2 K/uL (0.0-0.4); EOSINOPHILS % (AUTO) 3.7 % (0.0-4.0); HEMOGLOBIN 8.4 g/dL (12.0-16.0); LYMPHOCYTES # (AUTO) 1.2 K/uL (1.0-5.5); MEAN CORPUSCULAR HEMOGLOBIN 32 pg (27-31); MEAN CORPUSCULAR HGB CONC 31 % (32-36); MEAN CORPUSCULAR VOLUME 102 fL (79.0-98.0); MONOCYTES # (AUTO) 0.7 K/uL (0.0-1.0); MONOCYTES % (AUTO) 11.8 % (1.7-9.3); NEUTROPHILS # (AUTO) 3.4 K/uL (1.8-7.7); NEUTROPHILS % (AUTO) 61.4 % (40.0-70.0); RED BLOOD CELL COUNT(AUTO) 2.66 MIL/uL (4.2-6.2); RED CELL DISTRIBUTION WIDTH 19.1 % (9.0-15.0)
[2018-09-15 06:59] LABS: CALCIUM 8.5 mg/dL (8.4-11.0); CREATININE 4.33 mg/dL (0.55-1.30); POTASSIUM 4.3 mmol/L (3.5-5.1)
[2018-09-15] MEDS: IPRATROPIUM/ALBUTEROL SULFATE 3 ML AMPUL.NEB (DUONEB) INH SCH ×2 (07:06→20:10)
[2018-09-15 07:35] LABS: WHITE BLOOD COUNT (AUTO) 5.6 K/uL (4.8-10.8)
[2018-09-15 08:06] VITALS: BP_SYST 124
[2018-09-15] MEDS: hydrALAZINE HCL 25 MG TABLET PO SCH ×2 (09:00→21:18)
[2018-09-15] MEDS: CLOPIDOGREL BISULFATE 75 MG TABLET PO SCH (09:00)
[2018-09-15] MEDS: FUROSEMIDE 40 MG TABLET PO SCH (09:00)
[2018-09-15] MEDS: METOPROLOL TARTRATE 25 MG TABLET PO SCH ×2 (09:00→21:19)
[2018-09-15] MEDS: FOLIC ACID 1 MG TABLET PO SCH (09:39)
[2018-09-15] MEDS: DOCUSATE SODIUM 250 MG CAPSULE PO SCH (09:39)
[2018-09-15] MEDS: ASPIRIN 81 MG TABLET(ECOTRIN) PO SCH (09:39)
[2018-09-15] MEDS: SERTRALINE HCL 50 MG TABLET PO SCH (09:39)
[2018-09-15] MEDS: GABAPENTIN 100 MG CAPSULE PO SCH (09:39)
[2018-09-15] MEDS: CALCIUM CARBONATE/VITAMIN D3 1 TAB TABLET PO SCH (09:39)
[2018-09-15] MEDS: INSULIN ASPART 100 UNITS/ML, 10 ML VIAL (NovoLOG) SUBCUT PRN ×3 (11:33→21:30)
[2018-09-15 11:56] LABS: PLATELET COUNT (AUTO) 63 K/uL (130-430)
[2018-09-15 12:18] VITALS: BP_SYST 110
[2018-09-15 16:30] VITALS: BP_SYST 118
[2018-09-15 20:00] VITALS: BP_SYST 119
[2018-09-15] MEDS: HYDROcodone/ACETAMIN 5-325 MG TAB (NORCO/ VICODIN) PO PRN (21:20)
[2018-09-15 23:33] VITALS: BP_SYST 116
[2018-09-16] MEDS: PIPERACILLIN/TAZO 2.25G/DEX-IS 50 ML IV SCH ×3 (06:06→21:14)
[2018-09-16] MEDS: INSULIN ASPART 100 UNITS/ML, 10 ML VIAL (NovoLOG) SUBCUT PRN ×4 (06:16→21:19)
[2018-09-16] MEDS: INSULIN NPH/REGULAR 70-30, 100 UNITS/ML, 10 ML VIAL SUBCUT SCH ×2 (06:21→16:58)
[2018-09-16 06:39] LABS: CALCIUM 8.4 mg/dL (8.4-11.0); CREATININE 5.54 mg/dL (0.55-1.30); POTASSIUM 4.5 mmol/L (3.5-5.1)
[2018-09-16 07:06] LABS: BASOPHILS % (AUTO) 0.7 % (0.0-2.0); EOSINOPHILS # (AUTO) 0.2 K/uL (0.0-0.4); EOSINOPHILS % (AUTO) 3.7 % (0.0-4.0); HEMATOCRIT 25.1 % (36-48); HEMOGLOBIN 7.9 g/dL (12.0-16.0); LYMPHOCYTES # (AUTO) 1.1 K/uL (1.0-5.5); LYMPHOCYTES % (AUTO) 18.6 % (20.5-51.5); MEAN CORPUSCULAR HEMOGLOBIN 32 pg (27-31); MEAN CORPUSCULAR HGB CONC 31 % (32-36); MEAN CORPUSCULAR VOLUME 102 fL (79.0-98.0); MONOCYTES # (AUTO) 0.7 K/uL (0.0-1.0); MONOCYTES % (AUTO) 11.9 % (1.7-9.3); PLATELET COUNT (AUTO) 69 K/uL (130-430); RED BLOOD CELL COUNT(AUTO) 2.45 MIL/uL (4.2-6.2); RED CELL DISTRIBUTION WIDTH 19.9 % (9.0-15.0)
[2018-09-16] MEDS: IPRATROPIUM/ALBUTEROL SULFATE 3 ML AMPUL.NEB (DUONEB) INH SCH ×2 (07:36→19:41)
[2018-09-16] MEDS: CLOPIDOGREL BISULFATE 75 MG TABLET PO SCH (09:00)
[2018-09-16] MEDS: METOPROLOL TARTRATE 25 MG TABLET PO SCH ×2 (09:00→21:00)
[2018-09-16] MEDS: ASPIRIN 81 MG TABLET(ECOTRIN) PO SCH (09:00)
[2018-09-16] MEDS: DOCUSATE SODIUM 250 MG CAPSULE PO SCH (09:00)
[2018-09-16] MEDS: FUROSEMIDE 40 MG TABLET PO SCH (09:00)
[2018-09-16] MEDS: hydrALAZINE HCL 25 MG TABLET PO SCH ×2 (09:00→21:00)
[2018-09-16 09:43] LABS: NEUTROPHILS % (AUTO) 65.1 % (40.0-70.0)
[2018-09-16] MEDS: CALCIUM CARBONATE/VITAMIN D3 1 TAB TABLET PO SCH (09:54)
[2018-09-16] MEDS: SERTRALINE HCL 50 MG TABLET PO SCH (09:54)
[2018-09-16] MEDS: FOLIC ACID 1 MG TABLET PO SCH (09:54)
[2018-09-16] MEDS: GABAPENTIN 100 MG CAPSULE PO SCH (09:54)
[2018-09-16 12:35] VITALS: BP_SYST 93
[2018-09-16 16:13] VITALS: BP_SYST 116
[2018-09-16] MEDS: HYDROcodone/ACETAMIN 5-325 MG TAB (NORCO/ VICODIN) PO PRN ×2 (16:59→23:50)
[2018-09-16 20:00] VITALS: BP_SYST 111
[2018-09-17 00:39] VITALS: BP_SYST 106
[2018-09-17] MEDS: PIPERACILLIN/TAZO 2.25G/DEX-IS 50 ML IV SCH ×3 (06:23→22:43)
[2018-09-17] MEDS: INSULIN ASPART 100 UNITS/ML, 10 ML VIAL (NovoLOG) SUBCUT PRN ×4 (06:30→22:46)
[2018-09-17] MEDS: INSULIN NPH/REGULAR 70-30, 100 UNITS/ML, 10 ML VIAL SUBCUT SCH ×2 (06:32→16:51)
[2018-09-17 07:23] VITALS: BP_SYST 108
[2018-09-17] MEDS: IPRATROPIUM/ALBUTEROL SULFATE 3 ML AMPUL.NEB (DUONEB) INH SCH ×2 (07:24→19:41)
[2018-09-17 07:30] VITALS: BP_SYST 108
[2018-09-17 07:41] LABS: BASOPHILS % (AUTO) 0.4 % (0.0-2.0); EOSINOPHILS # (AUTO) 0.2 K/uL (0.0-0.4); EOSINOPHILS % (AUTO) 3.4 % (0.0-4.0); HEMOGLOBIN 7.9 g/dL (12.0-16.0); LYMPHOCYTES # (AUTO) 0.9 K/uL (1.0-5.5); LYMPHOCYTES % (AUTO) 13.6 % (20.5-51.5); MEAN CORPUSCULAR HEMOGLOBIN 32 pg (27-31); MEAN CORPUSCULAR HGB CONC 32 % (32-36); MEAN CORPUSCULAR VOLUME 101 fL (79.0-98.0); MONOCYTES # (AUTO) 0.5 K/uL (0.0-1.0); MONOCYTES % (AUTO) 8.2 % (1.7-9.3); NEUTROPHILS # (AUTO) 4.9 K/uL (1.8-7.7); PLATELET COUNT (AUTO) 71 K/uL (130-430); RED BLOOD CELL COUNT(AUTO) 2.48 MIL/uL (4.2-6.2); WHITE BLOOD COUNT (AUTO) 6.5 K/uL (4.8-10.8)
[2018-09-17 07:43] LABS: CALCIUM 8.1 mg/dL (8.4-11.0); CREATININE 5.12 mg/dL (0.55-1.30); POTASSIUM 3.6 mmol/L (3.5-5.1)
[2018-09-17 07:51] LABS: NEUTROPHILS % (AUTO) 74.4 % (40.0-70.0)
[2018-09-17] MEDS: CALCIUM CARBONATE/VITAMIN D3 1 TAB TABLET PO SCH (08:42)
[2018-09-17] MEDS: FOLIC ACID 1 MG TABLET PO SCH (08:42)
[2018-09-17] MEDS: hydrALAZINE HCL 25 MG TABLET PO SCH ×2 (08:43→21:00)
[2018-09-17] MEDS: ASPIRIN 81 MG TABLET(ECOTRIN) PO SCH (08:43)
[2018-09-17] MEDS: GABAPENTIN 100 MG CAPSULE PO SCH (08:43)
[2018-09-17] MEDS: DOCUSATE SODIUM 250 MG CAPSULE PO SCH ×2 (08:43→08:51)
[2018-09-17] MEDS: SERTRALINE HCL 50 MG TABLET PO SCH (08:44)
[2018-09-17] MEDS: METOPROLOL TARTRATE 25 MG TABLET PO SCH ×2 (08:44→21:00)
[2018-09-17] MEDS: CLOPIDOGREL BISULFATE 75 MG TABLET PO SCH (08:51)
[2018-09-17] MEDS: FUROSEMIDE 40 MG TABLET PO SCH (08:51)
[2018-09-17] MEDS: HYDROcodone/ACETAMIN 5-325 MG TAB (NORCO/ VICODIN) PO PRN ×3 (10:08→22:44)
[2018-09-17 12:16] VITALS: BP_SYST 103
[2018-09-17 14:32] LABS: APPEARANCE,SPUN,BODY FLUID CLEAR (CLEAR); BF APPEARANCE UNSPUN HAZY (CLEAR); BODY FLUID COLOR RED (LT YELLOW); BODY FLUID SOURCE/ TYPE PLEURAL; BODY FLUID TOTAL VOLUME 900 mL; SOURCE/TYPE ,BODY FLUID THORACENTESIS
[2018-09-17 14:40] LABS: WBC, BODY FLUID 8 /uL
[2018-09-17 14:41] LABS: RBC, BODY FLUID 11167 /uL
[2018-09-17 16:44] VITALS: BP_SYST 114
[2018-09-17] MEDS: EPOETIN ALFA 10,000 UNITS/ML VIAL SUBCUT SCH (16:56)
[2018-09-17 19:34] LABS: BODY FLUID GLUCOSE 190 mg/dL
[2018-09-17 21:00] VITALS: BP_SYST 116
[2018-09-18 00:54] VITALS: BP_SYST 98
[2018-09-18] MEDS: PIPERACILLIN/TAZO 2.25G/DEX-IS 50 ML IV SCH ×3 (05:54→21:04)
[2018-09-18] MEDS: INSULIN NPH/REGULAR 70-30, 100 UNITS/ML, 10 ML VIAL SUBCUT SCH ×2 (05:56→17:04)
[2018-09-18] MEDS: INSULIN ASPART 100 UNITS/ML, 10 ML VIAL (NovoLOG) SUBCUT PRN ×3 (05:57→17:03)
[2018-09-18 06:54] LABS: BASOPHILS % (AUTO) 0.3 % (0.0-2.0); EOSINOPHILS # (AUTO) 0.3 K/uL (0.0-0.4); HEMATOCRIT 26.3 % (36-48); LYMPHOCYTES # (AUTO) 1.1 K/uL (1.0-5.5); LYMPHOCYTES % (AUTO) 15.8 % (20.5-51.5); MEAN CORPUSCULAR HEMOGLOBIN 33 pg (27-31); MEAN CORPUSCULAR HGB CONC 32 % (32-36); MEAN CORPUSCULAR VOLUME 102 fL (79.0-98.0); MONOCYTES # (AUTO) 0.7 K/uL (0.0-1.0); MONOCYTES % (AUTO) 9.9 % (1.7-9.3); PLATELET COUNT (AUTO) 85 K/uL (130-430); RED BLOOD CELL COUNT(AUTO) 2.58 MIL/uL (4.2-6.2); RED CELL DISTRIBUTION WIDTH 18.6 % (9.0-15.0); WHITE BLOOD COUNT (AUTO) 7.1 K/uL (4.8-10.8)
[2018-09-18 06:57] LABS: CALCIUM 8.6 mg/dL (8.4-11.0); CREATININE 6.16 mg/dL (0.55-1.30); POTASSIUM 4.1 mmol/L (3.5-5.1)
[2018-09-18] MEDS: IPRATROPIUM/ALBUTEROL SULFATE 3 ML AMPUL.NEB (DUONEB) INH SCH (07:28)
[2018-09-18 07:30] VITALS: BP_SYST 113
[2018-09-18 08:29] LABS: HEMOGLOBIN 8.4 g/dL (12.0-16.0)
[2018-09-18] MEDS: METOPROLOL TARTRATE 25 MG TABLET PO SCH ×2 (09:00→20:46)
[2018-09-18] MEDS: CLOPIDOGREL BISULFATE 75 MG TABLET PO SCH (09:00)
[2018-09-18] MEDS: FUROSEMIDE 40 MG TABLET PO SCH (09:00)
[2018-09-18] MEDS: hydrALAZINE HCL 25 MG TABLET PO SCH ×2 (09:00→20:46)
[2018-09-18] MEDS: FOLIC ACID 1 MG TABLET PO SCH (09:01)
[2018-09-18] MEDS: DOCUSATE SODIUM 250 MG CAPSULE PO SCH (09:01)
[2018-09-18] MEDS: CALCIUM CARBONATE/VITAMIN D3 1 TAB TABLET PO SCH (09:02)
[2018-09-18] MEDS: GABAPENTIN 100 MG CAPSULE PO SCH (09:02)
[2018-09-18] MEDS: SERTRALINE HCL 50 MG TABLET PO SCH (09:02)
[2018-09-18] MEDS: ASPIRIN 81 MG TABLET(ECOTRIN) PO SCH (09:02)
[2018-09-18] MEDS ORDERED: DIATR MEGLU/DIATRIZ SOD 30 ML SOLUTION PO ONE (10:48)
[2018-09-18] MEDS: HYDROcodone/ACETAMIN 5-325 MG TAB (NORCO/ VICODIN) PO PRN (11:34)
[2018-09-18 12:00] VITALS: BP_SYST 116
[2018-09-18] MEDS ORDERED: MIDODRINE HCL 5 MG TABLET (PROAMATINE) PO ONE (13:45)
[2018-09-18 16:26] VITALS: BP_SYST 117
[2018-09-18 20:00] VITALS: BP_SYST 119
[2018-09-18] MEDS: MIDODRINE HCL 5 MG TABLET (PROAMATINE) PO SCH (20:46)
[2018-09-19 00:26] VITALS: BP_SYST 111
[2018-09-19 03:41] VITALS: BP_SYST 112
[2018-09-19] MEDS: PIPERACILLIN/TAZO 2.25G/DEX-IS 50 ML IV SCH ×2 (06:02→15:57)
[2018-09-19] MEDS: INSULIN NPH/REGULAR 70-30, 100 UNITS/ML, 10 ML VIAL SUBCUT SCH (06:05)
[2018-09-19] MEDS: IPRATROPIUM/ALBUTEROL SULFATE 3 ML AMPUL.NEB (DUONEB) INH SCH (07:30)
[2018-09-19 08:00] VITALS: BP_SYST 129
[2018-09-19] MEDS: FUROSEMIDE 40 MG TABLET PO SCH (08:34)
[2018-09-19] MEDS: hydrALAZINE HCL 25 MG TABLET PO SCH (08:34)
[2018-09-19] MEDS: METOPROLOL TARTRATE 25 MG TABLET PO SCH (08:34)
[2018-09-19 08:57] LABS: CALCIUM 8.6 mg/dL (8.4-11.0); CREATININE 5.83 mg/dL (0.55-1.30); POTASSIUM 3.7 mmol/L (3.5-5.1)
[2018-09-19] MEDS: DOCUSATE SODIUM 250 MG CAPSULE PO SCH (09:08)
[2018-09-19] MEDS: GABAPENTIN 100 MG CAPSULE PO SCH (09:08)
[2018-09-19] MEDS: ASPIRIN 81 MG TABLET(ECOTRIN) PO SCH (09:09)
[2018-09-19] MEDS: SERTRALINE HCL 50 MG TABLET PO SCH (09:09)
[2018-09-19] MEDS: MIDODRINE HCL 5 MG TABLET (PROAMATINE) PO SCH (09:09)
[2018-09-19] MEDS: CALCIUM CARBONATE/VITAMIN D3 1 TAB TABLET PO SCH (09:09)
[2018-09-19] MEDS: FOLIC ACID 1 MG TABLET PO SCH (09:09)
[2018-09-19] MEDS: CLOPIDOGREL BISULFATE 75 MG TABLET PO SCH (09:09)
[2018-09-19] MEDS ORDERED: BISACODYL 5 MG TABLET.DR (DULCOLAX) PO ONE (09:30)
[2018-09-19] MEDS: INSULIN ASPART 100 UNITS/ML, 10 ML VIAL (NovoLOG) SUBCUT PRN (11:47)
[2018-09-19 12:31] VITALS: BP_SYST 107
[2018-09-19 16:10] VITALS: BP_SYST 129
[2018-09-19 16:47] VITALS: BP_SYST 119
== END 2018-09-19 16:50 | DRG 177 ==
LOC: SED 10:37 → STU 14:25 → SMU 09-15 09:11
PROVIDERS: ADMIT General Practice; ATTEND General Practice
PROC: 5A1D70Z Performance of Urinary Filtration, Intermittent, Less than 6 Hours Per Day (ICD-10-PCS; principal; 2018-09-13)
PROC: 5A1D70Z Performance of Urinary Filtration, Intermittent, Less than 6 Hours Per Day (ICD-10-PCS; 2018-09-15)
PROC: 5A1D70Z Performance of Urinary Filtration, Intermittent, Less than 6 Hours Per Day (ICD-10-PCS; 2018-09-17)
PROC: 0W9B3ZZ Drainage of Left Pleural Cavity, Percutaneous Approach (ICD-10-PCS; 2018-09-17)
PROC: BB4BZZZ Ultrasonography of Pleura (ICD-10-PCS; 2018-09-17)
PROC: 5A1D70Z Performance of Urinary Filtration, Intermittent, Less than 6 Hours Per Day (ICD-10-PCS; 2018-09-18)
DX: J69.0 Pneumonitis due to inhalation of food and vomit (principal); N17.0 Acute kidney failure with tubular necrosis; N18.6 End stage renal disease; J96.01 Acute respiratory failure with hypoxia; I50.43 Acute on chronic combined systolic (congestive) and diastolic (congestive) heart failure; I13.2 Hypertensive heart and chronic kidney disease with heart failure and with stage 5 chronic kidney disease, or end stage renal disease; E44.0 Moderate protein-calorie malnutrition; I31.3 Pericardial effusion (noninflammatory); J90 Pleural effusion, not elsewhere classified; Z68.41 Body mass index [BMI] 40.0-44.9, adult; J98.11 Atelectasis; D63.1 Anemia in chronic kidney disease; D69.6 Thrombocytopenia, unspecified; E11.22 Type 2 diabetes mellitus with diabetic chronic kidney disease; E11.51 Type 2 diabetes mellitus with diabetic peripheral angiopathy without gangrene; E11.65 Type 2 diabetes mellitus with hyperglycemia; F03.90 Unspecified dementia, unspecified severity, without behavioral disturbance, psychotic disturbance, mood disturbance, and anxiety; K21.9 Gastro-esophageal reflux disease without esophagitis; E66.01 Morbid (severe) obesity due to excess calories; E11.42 Type 2 diabetes mellitus with diabetic polyneuropathy; G89.4 Chronic pain syndrome; Z74.01 Bed confinement status; Z79.4 Long term (current) use of insulin; Z86.73 Personal history of transient ischemic attack (TIA), and cerebral infarction without residual deficits; Z87.440 Personal history of urinary (tract) infections; Z87.891 Personal history of nicotine dependence; Z99.2 Dependence on renal dialysis; Z90.710 Acquired absence of both cervix and uterus; Z98.51 Tubal ligation status; Z90.49 Acquired absence of other specified parts of digestive tract; Z90.89 Acquired absence of other organs; Z88.8 Allergy status to other drugs, medicaments and biological substances; Z88.6 Allergy status to analgesic agent; Z88.1 Allergy status to other antibiotic agents; Z91.040 Latex allergy status; Z79.899 Other long term (current) drug therapy
CPT/HCPCS: 32555; 36415; 36600; 71045; 71250-TC; 76604; 80048; 80053; 80061; 82550-TC; 82803-TC; 82947-TC; 82962; 83036; 83615-TC; 83735-TC; 83880; 84100-TC; 84155-TC; 84157-TC; 84484; 85025; 85610-TC; 85730-TC; 87070-TC; 87081; 87086; 87101; 87116; 88108; 88305; 89051-TC; 89060-TC; 90935; 90937; 93005; 94640; 94760; 97110-GP; 97116-GP; 97530-GP; 99285; C1729; J0885; J1815; J2543; J7030; J7620; Q9964

== ENCOUNTER 2018-10-04 10:37 | Inpatient (IN) | payer OTHER, MEDICAID ==
[~2018-10-04] VITALS: Ht 157.5 cm; Wt 95.1 kg
[2018-10-04 10:37] VITALS: BP_SYST 119
[~2018-10-04 10:37] MED LIST changes: -INSU100V11 SQ
--- NOTE | 2018-10-04 10:37 | NUR ---
BROUGHT IN BY [facility], PLACED IN BED #2 AND TRIAGED. REPORT GIVEN TO MARY
--- NOTE | 2018-10-04 10:38 | NUR ---
ER Dr. Milan at bedside examining patient.
--- NOTE | 2018-10-04 10:40 | NUR ---
Pt brought in by EMS C/O chest pain. Pt was recieving dialysis for approximately 30mins and began to feel chest pain and shortness of breath. Pt states pain is 4/10 nonradiating with an increase pain on inspiration. Vital signs are stable, will continue to monitor.
--- NOTE | 2018-10-04 10:46 | NUR ---
Radiology at bedside for xray
--- NOTE | 2018-10-04 10:47 | NUR ---
Popeye elizondo in ED - 10/04/18 at 1047 by [email or web address] Radiology at bedside.
[2018-10-04] MEDS ORDERED: INSU100V11 SQ (10:51)
[2018-10-04] MEDS ORDERED: INSU100V SQ (10:51)
--- NOTE | 2018-10-04 10:52 | NUR ---
Medication reconciliation completed with information provided by FAMILY. Any prior medication reconciliation on file was reviewed and corrected.
[2018-10-04 11:12] LABS: BASOPHILS % (AUTO) 0.4 % (0.0-2.0); EOSINOPHILS # (AUTO) 0.3 K/uL (0.0-0.4); EOSINOPHILS % (AUTO) 4.2 % (0.0-4.0); HEMATOCRIT 30.4 % (36-48); LYMPHOCYTES # (AUTO) 0.7 K/uL (1.0-5.5); LYMPHOCYTES % (AUTO) 11.2 % (20.5-51.5); MEAN CORPUSCULAR HEMOGLOBIN 33 pg (27-31); MEAN CORPUSCULAR HGB CONC 32 % (32-36); MEAN CORPUSCULAR VOLUME 100 fL (79.0-98.0); MONOCYTES # (AUTO) 0.3 K/uL (0.0-1.0); MONOCYTES % (AUTO) 4.6 % (1.7-9.3); NEUTROPHILS # (AUTO) 5.1 K/uL (1.8-7.7); NEUTROPHILS % (AUTO) 79.6 % (40.0-70.0); RED BLOOD CELL COUNT(AUTO) 3.03 MIL/uL (4.2-6.2); RED CELL DISTRIBUTION WIDTH 16.9 % (9.0-15.0); WHITE BLOOD COUNT (AUTO) 6.4 K/uL (4.8-10.8)
[2018-10-04 11:15] LABS: HEMOGLOBIN 9.8 g/dL (12.0-16.0)
[2018-10-04 11:24] LABS: CREATININE 4.79 mg/dL (0.55-1.30); POTASSIUM 3.7 mmol/L (3.5-5.1)
[2018-10-04 11:25] LABS: INR 1.2 (0.8-1.2); PROTHROMBIN TIME 11.9 SECS (9.5-12.5)
[2018-10-04 11:28] LABS: ALBUMIN 2.9 g/dL (3.4-4.8); TOTAL BILIRUBIN 1.1 mg/dL (0.0-1.0)
--- NOTE | 2018-10-04 11:30 | NUR ---
Pt resting on gurney, caregiver at bedside, vital signs stable at this time.
[2018-10-04 11:57] LABS: PLATELET COUNT (AUTO) 74 K/uL (130-430)
--- NOTE | 2018-10-04 12:15 | NUR ---
Dr. Milan at bedside speaking with pt and pt's caregiver.
--- NOTE | 2018-10-04 12:20 | NUR ---
DR REYES CALLING DR CENTENO FOR ADMISSION.
--- NOTE | 2018-10-04 12:26 | NUR ---
TELE FLOOR CALLED TO INFORM OF PT'S ADMISSION. CHARGE NURSE STATES SHE WILL CALL BACK WITH BED ASSIGNMENT.
--- NOTE | 2018-10-04 12:47 | NUR ---
Attempted to contact pt's daughter Erin @ [phone]; no answer. Voice message left to inform her of her mother's admission to tele in room 122A.
--- NOTE | 2018-10-04 12:54 | NUR ---
ADMISSION NOTE Received patient from ER via alberto, received report from Hector VEGAS. Patient admitted with diagnosis of Pleural Effusion. Patient oriented to hospital routine, call light, toileting and safety-patient verbalized understanding.
--- NOTE | 2018-10-04 13:00 | NUR ---
Patient will be admitted to care of Dr. Cherry. Admitted to tele unit. Will go to room 122a. Belongings list completed. Summary report printed. Report will be given at bedside. Transfer to tele via ACLS protocol. Licensed nurse present. IV present no signs or symptoms of infiltration.
--- NOTE | 2018-10-04 13:00 | NUR ---
RN NOTE PATIENT AWAKE IN BED, ALERT AND ORIENTED. ABLE TO MAKE NEEDS KNOWN. DENIES PAIN. CONT ON O2@L/M VIA NC. NO ACUTE DISTRESS. NO SOB. RESPIRATION EVEN AND UNLABORED. SKIN WARM AND DRY TO TOUCH. IV INTACT AND PATENT. AV SHUNT TO LEFT UPPER ARM. BED IN LOW AND LOCKED POSITION. SIDERAIL UPX3. BED ALARM ON. ALL NEEDS MET. STRUCTURAL MANAGER AT BEDSIDE. CONT TO MONITOR. CALL LIGHT IN REACH.
[2018-10-04 13:04] VITALS: BP_SYST 104
--- NOTE | 2018-10-04 14:08 | NUR ---
SEEN AND EXAMINED BY AT BEDSIDE. PATIENT WILL HAVE DIALYSIS TODAY. MD ORDER TROPONIN Q8HR X2 AND BILAT SCD; ORDERS CLARIFIED AND CARRIED OUT. CONT TO MONITOR
--- NOTE | 2018-10-04 15:00 | NUR ---
CALLED AND SPOKE TO REGARDING PATIENT AND DIALYSIS ORDERS. MD WILL COME SEE PATIENT
--- NOTE | 2018-10-04 16:52 | NUR ---
SPOKE TO AND REPORTED PATIENT C/O SOB ON O2@3L/M VIA NC WITH SpO2@94% AND PATIENT IS ASKING FOR HEMORRHOID CREAM. SAID SHE WILL PUT IN ORDERS FOR BREATHING TX AND FOR HEMORRHOID CREAM. CONT TO MONITOR
[2018-10-04] MEDS ORDERED: PHENYLEPH/MINERAL OIL/PETROLAT 45 GM OINT.APPL TP PRN (17:15)
[2018-10-04] MEDS ORDERED: IPRATROPIUM/ALBUTEROL SULFATE 3 ML AMPUL.NEB (DUONEB) INH PRN (17:15)
--- NOTE | 2018-10-04 17:20 | NUR ---
SEEN AND EXAMINED BY AT BEDSIDE. CONT TO MONITOR
[2018-10-04] MEDS ORDERED: ALBUTEROL SULFATE 0.083% 2.5 MG/3 ML VIAL.NEB INH ONE (17:22)
--- NOTE | 2018-10-04 17:57 | NUR ---
HD DIALYSIS COMPLETED WITH 2300 mL REMOVED; BP 107/60, HR 83, SpO2@94% ON 3L/M O2 VIA NC. PATIENT TOLERATED DIALYSIS WELL. ALL NEEDS MET. CALL LIGHT IN REACH. CONT TO MONITOR. WILL REPOSITION PATIENT FOR DINNER
[2018-10-04] MEDS ORDERED: INSULIN Lispro Prot/Lispro MIX 75-25, 100 UNITS/ML, 10 ML VIAL SUBCUT SCH (18:00)
[2018-10-04] MEDS: INSULIN NPH/REGULAR 70-30, 100 UNITS/ML, 10 ML VIAL SUBCUT SCH (18:19)
--- NOTE | 2018-10-04 18:23 | NUR ---
CONSULT DR. MARTÍNEZ SAW MRS. PRESTON ALREADY DR. ALVAREZ
--- NOTE | 2018-10-04 18:42 | NUR ---
CLOSING NOTE PATIENT AWAKE IN BED EATING DINNER; CARISSA WELL. VITAL SIGN STABLE. CONT ON O2@3L/M VIA NC, CARISSA WELL. NO ACUTE DISTRESS. NO SOB. RESP EVEN AND UNLABORED. SKIN WARM AND DRY TO TOUCH. IV INTACT AND PATENT. AV SHUNT TO LEFT ARM WITH NO SIGN OF BLEEDING NOTED. ALL NEEDS MET. CALL LIGHT IN REACH. CONT TO MONITOR. WILL ENDORSE TO ONCOMING SHIFT.
[2018-10-04] MEDS: ALBUTEROL SULFATE 0.083% 2.5 MG/3 ML VIAL.NEB INH SCH ×2 (19:48→23:40)
[2018-10-04 20:00] VITALS: BP_SYST 135
--- NOTE | 2018-10-04 20:25 | NUR ---
INTER DRY PLACED TO ABDOMINAL SKIN FOLDS skin redness break down is noted .
--- NOTE | 2018-10-04 20:35 | NUR ---
PHONED PAGED DR JACOBO MICHELLE REGARDING NO SLIDING INSULIN SCALE OR ACCU CHECK COVERAGE PATIENT HAS HISTORY OF DM .
--- NOTE | 2018-10-04 20:45 | NUR ---
IV RIGHT AC NOTED TO BE NOT WORKING IV HAS BEEN D/C .
--- NOTE | 2018-10-04 21:00 | NUR ---
REFUSING IV RE - INSERTION PREVIOUS IV WENT BAD .
--- NOTE | 2018-10-04 21:10 | NUR ---
SECOND PAGE TO DR JACOBO MICHELLE RETURN CALL STILL PENDING .
--- NOTE | 2018-10-04 21:35 | NUR ---
NEW ORDERS FROM DR JACOBO MICHELLE ACCU - CHECK AC & HS & SLIDING SCALE , ONLY GIVE INSULIN COVERAGE WITH LUNCH TIME & BED TIME PER MD .
[2018-10-04] MEDS ORDERED: cefTRIAXone 1 GM VIAL ONE (21:58)
[2018-10-04] MEDS ORDERED: AZITHROMYCIN 500 MG/VIAL (ZITHROMAX) IV ONE (21:58)
[2018-10-04] MEDS: hydrALAZINE HCL 25 MG TABLET PO SCH (22:04)
[2018-10-04] MEDS: HYDROcodone/ACETAMIN 5-325 MG TAB (NORCO/ VICODIN) PO PRN (22:04)
[2018-10-04] MEDS: cefTRIAXone 1 GM in D5W 50 ML IV SCH (22:05)
[2018-10-04] MEDS: AZITHROMYCIN 250 MG in NS 250 ML IV SCH (22:05)
[2018-10-05] MEDS ORDERED: COMMUNICATION ORDER XX ONE
--- NOTE | 2018-10-05 00:56 | NUR ---
NORCO TABLET PO GIVEN FOR GENERAL BACK PAIN AND HELPFUL .
[2018-10-05] MEDS: HYDROcodone/ACETAMIN 5-325 MG TAB (NORCO/ VICODIN) PO PRN (02:11)
[2018-10-05] MEDS: cefTRIAXone 1 GM in D5W 50 ML IV SCH ×2 (02:11→21:34)
[2018-10-05] MEDS: AZITHROMYCIN 250 MG in NS 250 ML IV SCH ×2 (02:12→21:34)
--- NOTE | 2018-10-05 02:31 | NUR ---
NEW IV STARTED TO RIGHT THUMB IVPB ABX INFUSING , TOLERATING .
[2018-10-05 03:10] VITALS: BP_SYST 107
[2018-10-05] MEDS: ALBUTEROL SULFATE 0.083% 2.5 MG/3 ML VIAL.NEB INH SCH ×6 (03:26→23:26)
[2018-10-05 03:28] LABS: CALCIUM 8.4 mg/dL (8.4-11.0); CREATININE 3.81 mg/dL (0.55-1.30); POTASSIUM 3.2 mmol/L (3.5-5.1)
--- NOTE | 2018-10-05 05:52 | NUR ---
Z GUARD OINTMENT APPLIED TO BUTTOCKS & ABD FOLDS AREAS , KEPT CLEAN & DRY NEEDED .
[2018-10-05] MEDS: INSULIN NPH/REGULAR 70-30, 100 UNITS/ML, 10 ML VIAL SUBCUT SCH ×2 (06:33→17:39)
--- NOTE | 2018-10-05 08:00 | NUR ---
AM ASSESSMENT. PT ALERT, HELPED PT TURNED IN BED, TRAY SERVED FOR BREAKFAST, WITH SOME ASSISTANCE SEEN, PT FEELING COLD AND TIRED, WILL CONTINUE TO MONITOR PT.
[2018-10-05 08:11] LABS: HEPATITIS A AB, IgM Negative (Negative); HEPATITIS B CORE AB, IgM Negative (Negative); HEPATITIS B SURFACE AG Negative (Negative)
--- NOTE | 2018-10-05 09:56 | NUR ---
Nutrition Update Mike Scale 15 noted. Pt admitted for pleural effusion. Diet: CCHO, renal BMI: 38.4 kg/m2 RD to follow per nutrition care standards.
[2018-10-05] MEDS: LACTULOSE 20 GM/30 ML UDC PO PRN ×2 (10:26→22:39)
[2018-10-05] MEDS: DOCUSATE SODIUM 250 MG CAPSULE PO SCH (10:26)
[2018-10-05] MEDS: FOLIC ACID 1 MG TABLET PO SCH (10:26)
[2018-10-05] MEDS: ASPIRIN 81 MG TABLET(ECOTRIN) PO SCH (10:26)
[2018-10-05] MEDS: GABAPENTIN 100 MG CAPSULE PO SCH (10:27)
[2018-10-05] MEDS: cloNIDine HCL 0.1 MG TABLET PO SCH (10:27)
[2018-10-05] MEDS: SERTRALINE HCL 50 MG TABLET PO SCH (10:27)
[2018-10-05] MEDS: hydrALAZINE HCL 25 MG TABLET PO SCH ×2 (10:28→21:00)
[2018-10-05 12:00] VITALS: BP_SYST 118
[2018-10-05] MEDS: INSULIN ASPART 100 UNITS/ML, 10 ML VIAL (NovoLOG) SUBCUT PRN ×2 (13:05→21:43)
--- NOTE | 2018-10-05 14:16 | NUR ---
. DR CENTENO IN THE PT'S ROOM, QUESTIONS MADE BY PT'S DAUGHTER AND ANSWERED.
[2018-10-05] MEDS ORDERED: POTASSIUM CHLORIDE 20 MEQ TAB.PRT.SR PO ONE (14:30)
[2018-10-05 16:10] VITALS: BP_SYST 109
--- NOTE | 2018-10-05 19:00 | NUR ---
REPORT. GIVEN TO COOPERATIVE EXTENSION AGENT NURSE.
[2018-10-05 20:43] VITALS: BP_SYST 112
--- NOTE | 2018-10-05 21:00 | NUR ---
Patient awake alert verbally Responsive IV right thumb patent no sign of infiltration site clean .
--- NOTE | 2018-10-05 23:11 | NUR ---
Enulose 30 ML PO given for BOWEL REGULATION patient and alert .
--- NOTE | 2018-10-05 23:14 | NUR ---
ZITHROMAX 250 MG IVPB administer as ordered no allergic reaction noted .
--- NOTE | 2018-10-05 23:14 | NUR ---
ROCEPHIN 1 GM IVPB ADMINISTER ORDERED NO ADVERSE REACTION NOTED SKIN RASH FREE DRY WARM .
--- NOTE | 2018-10-06 00:09 | NUR ---
INTER DRY DRESSING APPLIED TO ABDOMINAL FOLDS SKIN BREAKDOWN is noted & helpful comfort measures implemented / .
[2018-10-06 01:16] VITALS: BP_SYST 113
--- NOTE | 2018-10-06 03:24 | NUR ---
LACTULOSE 30 ML PO GIVEN & EFFECTIVE STOOL X 3 NOTED , PATIENT COMFORTABLE CLEAN & DRY .
[2018-10-06] MEDS: ALBUTEROL SULFATE 0.083% 2.5 MG/3 ML VIAL.NEB INH SCH ×3 (03:59→13:59)
[2018-10-06] MEDS: INSULIN NPH/REGULAR 70-30, 100 UNITS/ML, 10 ML VIAL SUBCUT SCH ×2 (06:45→17:23)
[2018-10-06 07:33] LABS: CREATININE 4.83 mg/dL (0.55-1.30); POTASSIUM 3.8 mmol/L (3.5-5.1)
[2018-10-06 08:00] VITALS: BP_SYST 107
--- NOTE | 2018-10-06 08:00 | NUR ---
Opening Note Report received from [facility] shift nurse. Patient is currently sleeping in bed. LUE AV shunt is in place. HD schedule is MWF. Iv is on the right thumb 24g running NS@tko. No signs of distress noted at the moment. Call light is within reach and bed is in low position. Will continue to monitor.
[2018-10-06] MEDS: hydrALAZINE HCL 25 MG TABLET PO SCH (09:00)
[2018-10-06] MEDS: DOCUSATE SODIUM 250 MG CAPSULE PO SCH (09:36)
[2018-10-06] MEDS: GABAPENTIN 100 MG CAPSULE PO SCH (09:36)
[2018-10-06] MEDS: SERTRALINE HCL 50 MG TABLET PO SCH (09:36)
[2018-10-06] MEDS: FOLIC ACID 1 MG TABLET PO SCH (09:36)
[2018-10-06] MEDS: ASPIRIN 81 MG TABLET(ECOTRIN) PO SCH (09:36)
[2018-10-06] MEDS: cloNIDine HCL 0.1 MG TABLET PO SCH (09:37)
--- NOTE | 2018-10-06 10:20 | NUR ---
Rounds Patient was cleaned and turned. Tolerated well.
[2018-10-06] MEDS: INSULIN ASPART 100 UNITS/ML, 10 ML VIAL (NovoLOG) SUBCUT PRN ×2 (11:42→17:22)
[2018-10-06 12:27] VITALS: BP_SYST 117
--- NOTE | 2018-10-06 12:43 | NUR ---
Rounds Patient is resting in bed. Call light is within reach.
--- NOTE | 2018-10-06 14:46 | NUR ---
Rounds Patient is resting in bed. Daughter is at the bedside. Call light is within reach.
--- NOTE | 2018-10-06 15:41 | NUR ---
CALLED THE [facility] TO CONFIRM BED ASSIGNMENT BED 504B. SPOKE TO LISA.
[2018-10-06 15:46] VITALS: BP_SYST 107; BP_SYST 117
--- NOTE | 2018-10-06 15:51 | NUR ---
ARRANGED WITH [facility]. SPOKE TO RAFAELA
[2018-10-06] MEDS ORDERED: DOXY100C PO (15:53)
--- NOTE | 2018-10-06 16:40 | NUR ---
RN Note Report given to Dandy at [facility]. Patient will be going to room 504-B. Called, Yudy Wellington at [phone], message left.
[2018-10-06 17:08] VITALS: BP_SYST 100
--- NOTE | 2018-10-06 18:22 | NUR ---
Transition of Care Note Report given to the paramedics. IV and ID band were removed. All belongings were returned to the patient. Patient is in stable condition.
[2018-10-07] MEDS ORDERED: EPOETIN ALFA 4,000 UNITS/ML VIAL SUBCUT SCH (09:00)
== END 2018-10-06 18:22 | DRG 291 ==
LOC: SED 10:37 → STU 12:28
PROVIDERS: ADMIT Internal Medicine; ATTEND Internal Medicine
PROC: 5A1D70Z Performance of Urinary Filtration, Intermittent, Less than 6 Hours Per Day (ICD-10-PCS; principal; 2018-10-04)
DX: I13.2 Hypertensive heart and chronic kidney disease with heart failure and with stage 5 chronic kidney disease, or end stage renal disease (principal); I50.43 Acute on chronic combined systolic (congestive) and diastolic (congestive) heart failure; N18.6 End stage renal disease; E43 Unspecified severe protein-calorie malnutrition; J18.9 Pneumonia, unspecified organism; R07.89 Other chest pain; E11.9 Type 2 diabetes mellitus without complications; K21.9 Gastro-esophageal reflux disease without esophagitis; I25.10 Atherosclerotic heart disease of native coronary artery without angina pectoris; E11.319 Type 2 diabetes mellitus with unspecified diabetic retinopathy without macular edema; D63.1 Anemia in chronic kidney disease; K74.60 Unspecified cirrhosis of liver; K72.90 Hepatic failure, unspecified without coma; Z88.1 Allergy status to other antibiotic agents; Z88.5 Allergy status to narcotic agent; Z88.8 Allergy status to other drugs, medicaments and biological substances; Z91.048 Other nonmedicinal substance allergy status; Z79.82 Long term (current) use of aspirin; Z79.899 Other long term (current) drug therapy; Z79.4 Long term (current) use of insulin; Z90.49 Acquired absence of other specified parts of digestive tract; Z90.710 Acquired absence of both cervix and uterus; Z99.2 Dependence on renal dialysis; Z86.73 Personal history of transient ischemic attack (TIA), and cerebral infarction without residual deficits; Z68.38 Body mass index [BMI] 38.0-38.9, adult
CPT/HCPCS: 36415; 71045; 76604; 80048; 80053; 80074; 82550-TC; 82962; 83880; 84484; 85025; 85610-TC; 85730-TC; 87081; 90935; 93005; 94640; 94760; 99285; G0378; J0456; J0696; J1815; J7050; J7060; J7613; J7620

== ENCOUNTER 2019-01-15 12:45 | Inpatient (IN) | payer OTHER, MEDICAID ==
[2019-01-15] VITALS (11 sets, daily range): BP systolic 90–122
[~2019-01-15] VITALS: Ht 152.4 cm; Wt 87.2 kg
[~2019-01-15 12:45] MED LIST changes: +DOXY100C PO; -FURO-149 PO
--- NOTE | 2019-01-15 12:45 | NUR ---
BROUGHT IN BY [facility], PLACED IN BED #2 AND TRIAGED. REPORT GIVEN TO MARK
--- NOTE | 2019-01-15 12:53 | NUR ---
patient AOx4 arrived ALS from Dialysis with c/o SOB. Lungs are bilaterally deminished. patient completed her dialysis. patient able to speak in full sentances, patient states she has dementia. patient has extensive hx provided via [facility] transport. no other complaint or injury at this time.
--- NOTE | 2019-01-15 12:55 | NUR ---
# 18 gauge angiocath placed to RAC. Use of asceptic technique. Opsite placed over site. Blood return noted. Blood for lab drawn from site. Flushed with 10 cc of normal saline. No evidence of infiltration noted. Patient tolerated well.
--- NOTE | 2019-01-15 12:55 | NUR ---
ER at bedside examining patient.
--- NOTE | 2019-01-15 13:00 | NUR ---
patient placed on bipap. RT at bedside
[2019-01-15] MEDS ORDERED: IPRATROPIUM/ALBUTEROL SULFATE 3 ML AMPUL.NEB (DUONEB) ONE (13:09)
[2019-01-15] MEDS ORDERED: IPRATROPIUM/ALBUTEROL SULFATE 3 ML AMPUL.NEB (DUONEB) INH ONE (13:15)
[2019-01-15 13:56] LABS: CALCIUM 8.5 mg/dL (8.4-11.0); CREATININE 2.84 mg/dL (0.55-1.30)
[2019-01-15 14:00] LABS: INR 1.2 (0.8-1.2); PROTHROMBIN TIME 12.1 SECS (9.5-12.5)
[2019-01-15 14:01] LABS: ALBUMIN 2.4 g/dL (3.4-4.8); HEMATOCRIT 30.5 % (36-48); HEMOGLOBIN 9.8 g/dL (12.0-16.0); MEAN CORPUSCULAR VOLUME 102 fL (79.0-98.0); TOTAL BILIRUBIN 1.2 mg/dL (0.0-1.0); WHITE BLOOD COUNT (AUTO) 8.3 K/uL (4.8-10.8)
[2019-01-15 14:02] LABS: MEAN CORPUSCULAR HEMOGLOBIN 33 pg (27-31); MEAN CORPUSCULAR HGB CONC 32 % (32-36); RED CELL DISTRIBUTION WIDTH 16.8 % (9.0-15.0)
[2019-01-15 14:07] LABS: POTASSIUM 2.9 mmol/L (3.5-5.1)
[2019-01-15 14:14] LABS: NEUTROPHILS % (AUTO) 77.9 % (40.0-70.0)
[2019-01-15 14:15] LABS: BASOPHILS % (AUTO) 0.5 % (0.0-2.0); EOSINOPHILS # (AUTO) 0.3 K/uL (0.0-0.4); EOSINOPHILS % (AUTO) 3.6 % (0.0-4.0); LYMPHOCYTES # (AUTO) 0.8 K/uL (1.0-5.5); LYMPHOCYTES % (AUTO) 9.6 % (20.5-51.5); MONOCYTES # (AUTO) 0.7 K/uL (0.0-1.0); MONOCYTES % (AUTO) 8.4 % (1.7-9.3); NEUTROPHILS # (AUTO) 6.5 K/uL (1.8-7.7)
[2019-01-15] MEDS ORDERED: PIPERACILLIN/TAZO 3.375 GM in NS 50 ML IV ONE (14:15)
--- NOTE | 2019-01-15 14:20 | NUR ---
at bedside due to noncomplients of bipap useage
[2019-01-15 14:21] LABS: PLATELET COUNT (AUTO) 61 K/uL (130-430)
[2019-01-15] MEDS ORDERED: LORazepam 2 MG/ML VIAL (FOR ER USE) IVP ONE (15:15)
--- NOTE | 2019-01-15 15:39 | NUR ---
unable to do a reconcile medication because the dialysis center did not fax the information over. charge nurse is aware.
[2019-01-15] MEDS ORDERED: PIPERACILLIN/TAZOBACTAM 3.375 GM/VIAL (ZOSYN) IV ONE (15:59)
--- NOTE | 2019-01-15 16:00 | NUR ---
patient resting, RT called for transport
--- NOTE | 2019-01-15 16:40 | NUR ---
Received SBAR report at bedside from endorsing ED nurse. Pt placed in ICU bed 5.
--- NOTE | 2019-01-15 17:16 | NUR ---
CONSULTS CALLED PAGED DR AZUL RENO IS CALL FOR DR LIANG SPOKE WITH [place] REASON FOR CONSULT: DIALYSIS PAGED DR AMBROSIO SPOKE WITH MATT REASON FOR CONSULT: PULMONARY EDEMA
--- NOTE | 2019-01-15 17:16 | NUR ---
Patient will be admitted to care of MD Nati. Admitted to ICU unit. Will go to room 5. Belongings list completed. Summary report printed. Report will be given at bedside.
[2019-01-15] MEDS ORDERED: DIPHENHYDRAMINE HCL 25 MG CAPSULE PO PRN (18:15)
[2019-01-15] MEDS ORDERED: LevALBUTEROL HCL 1.25 MG/0.5 ML *CONC.* VIAL.NEB (XOPENEX CONC.) INH PRN (18:15)
--- NOTE | 2019-01-15 18:16 | NUR ---
CONSULT CALLED PAGED DR LOPEZ SPOKE WITH MATT REASON FOR CONSULT: RESP FAILURE
[2019-01-15] MEDS ORDERED: POTASSIUM CHLORIDE 40 MEQ in NS 250 ML IV ONE (19:00)
--- NOTE | 2019-01-15 19:00 | NUR ---
D/C BiPap per Dr. Orellana, Pt placed on 2L O2 therapy via NC to maintain SPO2 at or above 90.
[2019-01-15] MEDS ORDERED: KCL 40 mEq in 100 mL (PREMIX) 100 ML IV ONE (19:15)
[2019-01-15] MEDS: LevALBUTEROL HCL 1.25 MG/0.5 ML *CONC.* VIAL.NEB (XOPENEX CONC.) INH SCH (19:19)
--- NOTE | 2019-01-15 19:20 | NUR ---
Endorsement SBAR report endorsed to receiving RN at bedside.
--- NOTE | 2019-01-15 19:30 | NUR ---
PM ASSESSMENT REPORT RECEIVED FROM ALEKSANDRA VEGAS. PT RECEIVED IN BED WITH EYES CLOSED, LETHARGIC BUT RESPONDING TO TACTILE STIMULATION. VSS, NO S/S OF ACUTE DISTRESS NOTED. PT ON 2L NC. SR ON MONITOR. RAC 18G INFUSING NS TKO AND K-RIDER. L ARM AV SHUNT NOTED FOR DIALYSIS ACCESS, THRILL AND BRUIT PRESENT. PT DENIES ANY PAIN OR DISCOMFORT AT THIS TIME. SCDS IN PLACE. HOB ELEVATED, BED IN LOWEST POSITION, CALL LIGHT IN REACH. WILL CONTINUE TO MONITOR.
[2019-01-15] MEDS ORDERED: ALBUMIN HUMAN 25% 100 ML IV ONE (20:00)
--- NOTE | 2019-01-15 21:05 | NUR ---
DR. MONROE CHILDRESS MADE AWARE OF PT ABGS AT THIS TIME. NO NEW ORDERS RECEIVED. WILL CONTINUE TO MONITOR PT.
[2019-01-15] MEDS: PIPERACILLIN/TAZO 2.25G/DEX-IS 50 ML IV SCH (22:07)
[2019-01-16] VITALS (24 sets, daily range): BP systolic 94–129
--- NOTE | 2019-01-16 | NUR ---
RN ROUNDS PT RESTING COMFORTABLY IN BED WITH EYES CLOSED. VSS, NO S/S OF ACUTE DISTRESS NOTED. BREATHING IS EVEN AND UNLABORED ON 2L NC. WILL CONTINUE TO MONITOR PT.
[2019-01-16] MEDS: LevALBUTEROL HCL 1.25 MG/0.5 ML *CONC.* VIAL.NEB (XOPENEX CONC.) INH SCH ×5 (01:56→23:44)
[2019-01-16] MEDS: PIPERACILLIN/TAZO 2.25G/DEX-IS 50 ML IV SCH ×4 (03:07→21:55)
[2019-01-16 06:07] LABS: CALCIUM 8.3 mg/dL (8.4-11.0); CREATININE 3.63 mg/dL (0.55-1.30); POTASSIUM 3.7 mmol/L (3.5-5.1)
--- NOTE | 2019-01-16 07:13 | NUR ---
ENDORSEMENT BEDSIDE REPORT GIVEN TO HARSHIL VEGAS USING SBAR APPROACH.
--- NOTE | 2019-01-16 07:20 | NUR ---
Opening Note Patient received awake and alert. Patient on director of cardiac rehabilitation with NSR. Patient breathing evenly and unlabored with 2L O2 via NC. Patient has a right AC 18 gauge peripheral IV patent, flushing well, and saline-locked. Patient skin is intact. Safety precautions enforced. Instructed patient regarding use of call light.
[2019-01-16 07:25] LABS: HEMATOCRIT 27.3 % (36-48); HEMOGLOBIN 8.9 g/dL (12.0-16.0); MEAN CORPUSCULAR HEMOGLOBIN 33 pg (27-31); MEAN CORPUSCULAR HGB CONC 33 % (32-36); MEAN CORPUSCULAR VOLUME 102 fL (79.0-98.0); RED BLOOD CELL COUNT(AUTO) 2.68 MIL/uL (4.2-6.2); WHITE BLOOD COUNT (AUTO) 7.4 K/uL (4.8-10.8)
[2019-01-16 07:26] LABS: RED CELL DISTRIBUTION WIDTH 17.5 % (9.0-15.0)
[2019-01-16 07:27] LABS: BASOPHILS % (AUTO) 0.8 % (0.0-2.0); EOSINOPHILS % (AUTO) 5.8 % (0.0-4.0); LYMPHOCYTES % (AUTO) 13.2 % (20.5-51.5); MONOCYTES % (AUTO) 10.1 % (1.7-9.3); NEUTROPHILS # (AUTO) 5.2 K/uL (1.8-7.7); NEUTROPHILS % (AUTO) 70.1 % (40.0-70.0); PLATELET COUNT (AUTO) 62 K/uL (130-430)
[2019-01-16 07:28] LABS: BASOPHILS # (AUTO) 0.1 K/uL (0.0-0.2); EOSINOPHILS # (AUTO) 0.4 K/uL (0.0-0.4); MONOCYTES # (AUTO) 0.7 K/uL (0.0-1.0)
--- NOTE | 2019-01-16 08:40 | NUR ---
Rounds Dr. Desai @ bedside.
[2019-01-16] MEDS: ASPIRIN 81 MG TABLET(ECOTRIN) PO SCH (08:55)
[2019-01-16] MEDS: GABAPENTIN 100 MG CAPSULE PO SCH (08:55)
[2019-01-16] MEDS: NEPHROVITE, (FOLIC ACID/VITAMIN B COMP W-C 1 TAB) PO SCH (08:55)
[2019-01-16] MEDS: FOLIC ACID 1 MG TABLET PO SCH (08:55)
[2019-01-16] MEDS: DOCUSATE SODIUM 250 MG CAPSULE PO SCH (08:55)
[2019-01-16] MEDS: SERTRALINE HCL 50 MG TABLET PO SCH (08:56)
--- NOTE | 2019-01-16 10:00 | NUR ---
SCD Patient requested to take SCDs off. Educated patient regarding purpose of SCD.
[2019-01-16] MEDS: IPRATROPIUM/ALBUTEROL SULFATE 3 ML AMPUL.NEB (DUONEB) INH SCH ×4 (11:00→23:36)
[2019-01-16] MEDS: INSULIN REGULAR, HUMAN 100 UNITS/ML, 10 ML VIAL (novoLIN R) SUBCUT PRN ×2 (11:30→21:04)
--- NOTE | 2019-01-16 12:00 | NUR ---
RN Rounds Patient asleep comfortably in bed. Patient breathing evenly and unlabored. Patient in no signs of acute distress @ this time. Patient has no complaints of pain.
--- NOTE | 2019-01-16 12:30 | NUR ---
Rounds Dr. Sandhu @ bedside.
[2019-01-16] MEDS ORDERED: traMADol HCL HCL 50 MG TABLET (ULTRAM) PO PRN (12:45)
--- NOTE | 2019-01-16 16:00 | NUR ---
Rounds Dr. Jarvis @ bedside.
--- NOTE | 2019-01-16 16:00 | NUR ---
RN Rounds Patient awake and alert. Family @ bedside. No signs of acute distress @ this time. No complaints of pain @ this time.
--- NOTE | 2019-01-16 17:25 | NUR ---
Endorsement Patient endorsed to slot shift supervisor RN using SBR form. No signs of distress noted @ this time. Safety precautions enforced. Call light in reach.
--- NOTE | 2019-01-16 19:14 | NUR ---
ROUNDS Dr. Phelps @ bedside examining pt.
--- NOTE | 2019-01-16 19:30 | NUR ---
PM ASSESSMENT Pt in bed w/ eyes open resting comfortably. Family at bedside helping pt eat her dinner. VSS w/ SR seen on the monitor. Pt on 2L O2 via NC, tolerating well w/ O2 sats @ 96% and even and unlabored breathing. Pt has a R AC 18g, infusing NS TKO and LUIZ AV shunt for dialysis. SCD's noted to pt's bilateral lower extremities. Pt doesn't verbalize any other needs at this time. Bed is locked and in lowest position, call light w/in reach. Will continue to monitor.
--- NOTE | 2019-01-16 21:05 | NUR ---
MD SHOSHANA Sandhu called back. Pt c/o pain and and pt allergic to tramadol. New orders received, will carry out orders.
--- NOTE | 2019-01-16 21:15 | NUR ---
CHG BATH CHG bath given to pt at this time. Pt tolerated well, will continue to monitor.
[2019-01-16] MEDS: HYDROcodone/ACETAMIN 5-325 MG TAB (NORCO/ VICODIN) PO PRN (21:56)
--- NOTE | 2019-01-16 22:30 | NUR ---
RN ROUNDS Pt in bed w/ eyes closed resting comfortably. No signs of acute distress or discomfort noted. Will continue to monitor pt.
--- NOTE | 2019-01-16 23:15 | NUR ---
Report given to Italian RN using SBAR format and pt care was endorsed. Pt in bed w/ eyes open resting comfortably. No signs of acute distress or discomfort noted.
--- NOTE | 2019-01-16 23:15 | NUR ---
Initial Notes Received endorsement of patient from Sonu RN @ [phone]. Patient resting in bed, awake, alert, oriented. Patient denies any acute distress or pain at this time. Vital signs stable. Breathing is even and unlabored, nonproductive cough noted. IV site patent/clean/dry. Needs addressed. Educated patient regarding use of call light for assistance and fall precautions, patient verbalized understanding. Call light in hand, fall precautions in place, will continue to monitor.
[2019-01-17] VITALS (15 sets, daily range): BP systolic 98–137
--- NOTE | 2019-01-17 01:00 | NUR ---
Nursing Notes Patient resting in bed, awake. Patient denies any acute distress or pain. C/O nose being dry, RT notified and oxygen humidifier placed on patient's NC. Needs addressed. Call light in hand, fall precautions in place.
[2019-01-17] MEDS: IPRATROPIUM/ALBUTEROL SULFATE 3 ML AMPUL.NEB (DUONEB) INH SCH ×7 (03:00→23:00)
[2019-01-17] MEDS: PIPERACILLIN/TAZO 2.25G/DEX-IS 50 ML IV SCH ×4 (03:29→21:59)
--- NOTE | 2019-01-17 04:00 | NUR ---
Nursing Notes Patient resting in bed, awake. Patient denies any acute distress or pain at this time. Breathing is even and unlabored. IV site patent/clean/dry. Needs addressed. Assisted patient with toileting needs, patient had small soft brown bowel movement. Call light in hand, fall precautions in place.
[2019-01-17 06:05] LABS: WHITE BLOOD COUNT (AUTO) 7.3 K/uL (4.8-10.8)
[2019-01-17 06:08] LABS: HEMATOCRIT 28.5 % (36-48); HEMOGLOBIN 9.1 g/dL (12.0-16.0); MEAN CORPUSCULAR VOLUME 102 fL (79.0-98.0)
[2019-01-17 06:09] LABS: LYMPHOCYTES % (AUTO) 14.6 % (20.5-51.5); MEAN CORPUSCULAR HEMOGLOBIN 33 pg (27-31); MEAN CORPUSCULAR HGB CONC 32 % (32-36); NEUTROPHILS % (AUTO) 67.3 % (40.0-70.0); PLATELET COUNT (AUTO) 67 K/uL (130-430)
[2019-01-17 06:10] LABS: BASOPHILS # (AUTO) 0.1 K/uL (0.0-0.2); BASOPHILS % (AUTO) 0.8 % (0.0-2.0); EOSINOPHILS # (AUTO) 0.5 K/uL (0.0-0.4); EOSINOPHILS % (AUTO) 6.5 % (0.0-4.0); LYMPHOCYTES # (AUTO) 1.1 K/uL (1.0-5.5); MONOCYTES # (AUTO) 0.8 K/uL (0.0-1.0); MONOCYTES % (AUTO) 10.8 % (1.7-9.3); NEUTROPHILS # (AUTO) 4.9 K/uL (1.8-7.7)
[2019-01-17 06:28] LABS: ALBUMIN 2.4 g/dL (3.4-4.8); CALCIUM 8.8 mg/dL (8.4-11.0); CREATININE 4.8 mg/dL (0.55-1.30); THYROID STIMULATING HORMONE 0.58 uIu/mL (0.34-4.82); TOTAL BILIRUBIN 1.3 mg/dL (0.0-1.0)
--- NOTE | 2019-01-17 06:44 | NUR ---
Nursing Notes Patient resting in bed, awake watching TV. Patient denies any acute distress or pain at this time. Breathing is even and unlabored. IV site patent/clean/dry, no S/S infection/infiltration noted. Needs addressed throughout shift. Call light in hand, fall precautions in place. Will continue to monitor for changes and safety, and endorse all patient care/needs to oncoming nurse.
--- NOTE | 2019-01-17 06:49 | NUR ---
Nutrition Update Mike Scale 18 noted. Pt admitted for Acute Respiratory Failure, Pulmonary Edema, PNA Diet: CCHO diet BMI: 37.5 kg/m2 RD to follow per nutrition care standards.
[2019-01-17] MEDS: LevALBUTEROL HCL 1.25 MG/0.5 ML *CONC.* VIAL.NEB (XOPENEX CONC.) INH SCH ×2 (07:00→13:00)
--- NOTE | 2019-01-17 07:00 | NUR ---
INITIAL NOTE RECEIVED PATIENT FROM MANAGER FAMILY NURSE, PATIENT CURRENTLY RESTING IN BED, PATIENT ON 2L NC SATING AT 98%, IV IN RIGHT AC, NO SIGNS OF INFILTRATION NOTED, LEFT AV SHUT NOTED, PURPLE DISCOLORATION NOTED ON RIGHT ARM, INSTRUCTED PATIENT TO USE CALL ISIDRO IF ASSISTANCE IS NEEDED, PATIENT VERBALIZED UNDERSTANDING. WILL CONTINUE TO MONITOR.
[2019-01-17] MEDS: ASPIRIN 81 MG TABLET(ECOTRIN) PO SCH (08:24)
[2019-01-17] MEDS: DOCUSATE SODIUM 250 MG CAPSULE PO SCH (08:24)
[2019-01-17] MEDS: GABAPENTIN 100 MG CAPSULE PO SCH (08:24)
[2019-01-17] MEDS: FOLIC ACID 1 MG TABLET PO SCH (08:24)
[2019-01-17] MEDS: SERTRALINE HCL 50 MG TABLET PO SCH (08:24)
[2019-01-17] MEDS: NEPHROVITE, (FOLIC ACID/VITAMIN B COMP W-C 1 TAB) PO SCH (08:24)
--- NOTE | 2019-01-17 08:29 | NUR ---
MEDICATIONS MORNING MEDICATIONS GIVEN, NO OTHER NEEDS AT THIS TIME, WILL CONTINUE TO MONITOR. FALL PRECAUTIONS IN PLACE.
--- NOTE | 2019-01-17 10:45 | NUR ---
ROUNDS PATIENT CHANGED AND REPOSITIONED, NO OTHER NEEDS AT THIS TIME, CALL ISIDRO WITHIN REACH, WILL CONTINUE TO MONITOR.
[2019-01-17] MEDS: HYDROcodone/ACETAMIN 5-325 MG TAB (NORCO/ VICODIN) PO PRN ×2 (10:54→22:11)
--- NOTE | 2019-01-17 11:00 | NUR ---
THORACENTESIS PATIENT TOLERATED WELL 1L DRAINED. VITAL SIGNS STABLE BEFORE AND AFTER PROCEDURE DONE.
[2019-01-17] MEDS: INSULIN REGULAR, HUMAN 100 UNITS/ML, 10 ML VIAL (novoLIN R) SUBCUT PRN ×3 (12:22→22:02)
--- NOTE | 2019-01-17 12:38 | NUR ---
ROUNDS ACCUCHECK DONE, FV=970, INSULIN GIVEN, PATIENT CURRENTLY EATING LUNCH, O2 WAS DROPPING TO 88, PATIENT STATED SHE TOOK IT OFF TO EAT, INFORMED PATIENT ON IMPORTANCE OF KEEPING O2 ON, PATIENT VERBALIZED UNDERSTANDING, WILL CONTINUE TO MONITOR.
--- NOTE | 2019-01-17 13:30 | NUR ---
RECEIVED PATIENT PATIENT TRANSFERRED FROM ICU. RECEIVED REPORT FROM CHRISTIAN. PATIENT IN STABLE CONDITION. DIALYSIS NURSE WAS WAITING IN THE ROOM FOR PATIENT AND PATIENT IN DIALYSIS NOW. CALL LIGHT IN REACH, BED IN LOWEST POSITION, AND WILL CONTINUE TO MONITOR.
--- NOTE | 2019-01-17 13:30 | NUR ---
PATIENT TRANSFERRED PATIENT TRANSFERRED TO [facility] ROOM 132A, REPORT GIVEN TO SHAHIDA VEGAS USING SBAR, PATIENT'S BELONGINGS SENT WITH PATIENT.
[2019-01-17 13:33] LABS: BF APPEARANCE UNSPUN CLOUDY (CLEAR); BODY FLUID COLOR RED (LT YELLOW); BODY FLUID SOURCE/ TYPE THORACENTESIS; SOURCE/TYPE ,BODY FLUID THORACENTESIS
[2019-01-17 13:34] LABS: BODY FLUID TOTAL VOLUME 975 mL
[2019-01-17 14:47] LABS: WBC, BODY FLUID 11 /uL
[2019-01-17 14:48] LABS: LYMPHOCYTES, BODY FLUID 57 %; MONOCYTES,BODY FLUID 24 %; NEUTROPHIL, BODY FLUID 19 %; RBC, BODY FLUID 5444 /uL
[2019-01-17] MEDS ORDERED: LACTULOSE 20 GM/30 ML UDC PO ONE (17:00)
--- NOTE | 2019-01-17 17:04 | NUR ---
DIALYSIS COMPLETE 2 L OUT. BLOOD PRESSURE STABLE. WILL CONTINUE TO MONITOR.
[2019-01-17 18:03] LABS: BODY FLUID GLUCOSE 183 mg/dL
--- NOTE | 2019-01-17 18:19 | NUR ---
CLOSING NOTE: PATIENT IS RESTING COMFORTABLY IN BED. NO S/S OF DISTRESS OR SOB. PATIENT IS AWAKE AND ALERT, SOME CONFUSION NOTED. PATIENT ON ROOM AIR. PATIENT IS SALINE LOCKED. ALL NEEDS MET DURING SHIFT. CALL LIGHT IN REACH, BED IN LOWEST POSITION, AND WILL GIVE REPORT TO NIGHT NURSE.
[2019-01-17 18:30] LABS: BODY FLUID TOTAL PROTEIN 3.5 g/dL
--- NOTE | 2019-01-17 20:00 | NUR ---
Initial Notes Received patient resting in bed, awake, alert, oriented. Patient denies any acute distress or pain at this time. Breathing is even and unlabored. IV site patent/clean/dry. Needs addressed. Educated patient regarding use of call light for assistance and fall precautions, patient verbalized understanding. Call light in hand, fall precautions in place. Will continue to monitor.
--- NOTE | 2019-01-17 22:15 | NUR ---
Nursing Notes Patient resting in bed, awake watching TV. Patient denies any acute distress at this time. Medicated patient for pain per MD orders. Needs addressed. Call light in hand, fall precautions in place. Received call from Dr. Phelps. Orders received to order HD for patient for tomorrow 01/18/19, HD nurse to call MD for dialysis orders. Orders entered and Supervisor Prop Making Oralia made aware.
[2019-01-18] VITALS (9 sets, daily range): BP systolic 77–123
--- NOTE | 2019-01-18 00:35 | NUR ---
Nursing Notes Patient resting in bed with eyes closed. No acute distress noted, breathing is even and unlabored. Call light in hand, fall precautions in place. Will continue to monitor.
--- NOTE | 2019-01-18 02:00 | NUR ---
Nursing Notes Patient resting in bed, awake watching TV. Patient denies any acute distress or pain at this time. Breathing is even and unlabored. Wound care and dressing change provided. Needs addressed. Call light in hand, fall precautions in place. Will continue to monitor.
[2019-01-18] MEDS: IPRATROPIUM/ALBUTEROL SULFATE 3 ML AMPUL.NEB (DUONEB) INH SCH ×6 (03:00→23:25)
[2019-01-18] MEDS: PIPERACILLIN/TAZO 2.25G/DEX-IS 50 ML IV SCH ×4 (03:14→21:07)
--- NOTE | 2019-01-18 04:26 | NUR ---
Nursing Notes Patient resting in bed with eyes closed. No distress noted, breathing is even and unlabored. IV site patent/clean/dry. Call light in hand, fall precautions in place. Will continue to monitor for changes and safety.
--- NOTE | 2019-01-18 06:39 | NUR ---
Closing Notes Patient resting in bed with eyes closed, easily aroused. Patient denies any acute distress or pain at this time. Breathing is even and unlabored. IV site patent/clean/dry, no S/S infection/infiltration noted. Needs addressed throughout shift. Call light in hand, fall precautions in place. Will continue to monitor for changes and safety, and endorse all patient care/needs to oncoming nurse.
[2019-01-18] MEDS: LevALBUTEROL HCL 1.25 MG/0.5 ML *CONC.* VIAL.NEB (XOPENEX CONC.) INH SCH ×3 (07:00→19:00)
--- NOTE | 2019-01-18 08:00 | NUR ---
Note Pt sitting up in bed eating her breakfast. No SOB/resp distress or pain/discomfort noted at this time. IV in right AC intact and patent at this time. Tele unit attached and intact at this time. Pt keeps O2 at 2L/nc on sometimes and removes it other times. Call light within reach.
[2019-01-18] MEDS: DOCUSATE SODIUM 250 MG CAPSULE PO SCH (08:54)
[2019-01-18] MEDS: NEPHROVITE, (FOLIC ACID/VITAMIN B COMP W-C 1 TAB) PO SCH (08:54)
[2019-01-18] MEDS: GABAPENTIN 100 MG CAPSULE PO SCH (08:54)
[2019-01-18] MEDS: SERTRALINE HCL 50 MG TABLET PO SCH (08:54)
[2019-01-18] MEDS: FOLIC ACID 1 MG TABLET PO SCH (08:54)
[2019-01-18] MEDS: ASPIRIN 81 MG TABLET(ECOTRIN) PO SCH (08:54)
[2019-01-18] MEDS: LACTULOSE 20 GM/30 ML UDC PO SCH ×2 (08:55→17:09)
[2019-01-18] MEDS: HYDROcodone/ACETAMIN 5-325 MG TAB (NORCO/ VICODIN) PO PRN ×2 (10:26→21:06)
--- NOTE | 2019-01-18 11:35 | NUR ---
Note Pt resting in bed. Pt was given [place] 1 tab as requested, now in and out of sleep. Pain has decreased significantly per pt. No needs noted. Call light within reach.
[2019-01-18] MEDS: INSULIN REGULAR, HUMAN 100 UNITS/ML, 10 ML VIAL (novoLIN R) SUBCUT PRN ×3 (12:02→21:15)
--- NOTE | 2019-01-18 14:05 | NUR ---
Note Pt ate her lunch and now asleep on right side - pt able to turn self with reminders. No needs noted at this time. Call light within reach.
--- NOTE | 2019-01-18 15:55 | NUR ---
Note Dr Sandhu on the floor to assess pt at this time. Pt's daughter able to speak to Dr Sandhu, questions/concerns were answered at this time. No needs noted at this time. Pt having dialysis at this time at bedside. Call light within reach.
--- NOTE | 2019-01-18 16:48 | NUR ---
PAGED I PAGED DR. WYATT @ [phone] I SPOKE WITH WES MIR DEALMAKER AT THIS MOMENT DR. MIR CALLED BACK @ [phone]
--- NOTE | 2019-01-18 18:30 | NUR ---
Note Pt had started dialysis around 1543. Around 1730 pt became dazed and with a blank look on her face. Did not remember where she was or her name chore worker's name. boiler tenders supervisor called technology infusion specialist and order to stop dialysis and give pt 2L of NS given. Dialysis was stopped and 2L of normal saline was given. Pt now sitting up in bed eating ehr dinner and pt's daughter at bedside. Daughter has been at bedside since around 1600. No SOB/resp distress or pain/discomfort was noted at this time. Pt is oriented X3 at this time. IV in right AC intact and patent. No needs noted. Call light within reach.
--- NOTE | 2019-01-18 19:14 | NUR ---
Opening Notes Received patient in bed resting. AAOx3 and able to verbalize her needs. Heart and lung sounds wnl. Patient is NON ambulatory on bedrest. IV on he Right AC 18g clean and intact with no s/s of infiltration. On 2L NC with no respiratory distress. Patient is currently receiving Dialysis. Oriented the patient to the room and use of the call light. No concerns at this time. Call light within reach and bed alarm is active.
--- NOTE | 2019-01-18 22:05 | NUR ---
Patient in bed awake. Had multiple bowel movements. No complaints of pain of respiratory distress. Call light within reach. Will cont to monitor.
--- NOTE | 2019-01-19 00:15 | NUR ---
Patient in bed resting. No needs at this time. Will cont to monitor.
[2019-01-19 00:45] VITALS: BP_SYST 105
[2019-01-19] MEDS: LevALBUTEROL HCL 1.25 MG/0.5 ML *CONC.* VIAL.NEB (XOPENEX CONC.) INH SCH ×3 (01:00→13:00)
--- NOTE | 2019-01-19 02:15 | NUR ---
Patient assisted being repositioned. No sob or pain at this time. no further needs. will cont to monitor.
[2019-01-19] MEDS: PIPERACILLIN/TAZO 2.25G/DEX-IS 50 ML IV SCH ×4 (03:38→21:00)
[2019-01-19] MEDS: IPRATROPIUM/ALBUTEROL SULFATE 3 ML AMPUL.NEB (DUONEB) INH SCH ×5 (03:56→19:56)
--- NOTE | 2019-01-19 04:57 | NUR ---
No change in condition.
--- NOTE | 2019-01-19 06:48 | NUR ---
Closing Notes Patient in bed resting. IV on the right AC 18g saline lock, flushed with no infiltration. No pain or sob at this time. Call light placed within reach. All needs have been met and will endorse care to oncoming shift. Bed alarm is active.
--- NOTE | 2019-01-19 07:41 | NUR ---
Opening Note: Patient in bed resting. Patient denies pain or discomfort. Breathing is even and unlabored on 2L nasal cannula with no distress noted. IV patent and intact, no signs of infiltration. Safety precautions in place; bed in lowest position, wheels locked, side rails x3, bed alarm activated and call light within reach. NO needs at this time. Will continue to monitor.
[2019-01-19 08:14] VITALS: BP_SYST 121
[2019-01-19] MEDS: LACTULOSE 20 GM/30 ML UDC PO SCH (09:00)
[2019-01-19] MEDS: FOLIC ACID 1 MG TABLET PO SCH (09:00)
[2019-01-19] MEDS: DOCUSATE SODIUM 250 MG CAPSULE PO SCH (09:00)
[2019-01-19] MEDS: ASPIRIN 81 MG TABLET(ECOTRIN) PO SCH (09:00)
[2019-01-19] MEDS: SERTRALINE HCL 50 MG TABLET PO SCH (09:01)
[2019-01-19] MEDS: GABAPENTIN 100 MG CAPSULE PO SCH (09:01)
[2019-01-19] MEDS: NEPHROVITE, (FOLIC ACID/VITAMIN B COMP W-C 1 TAB) PO SCH (09:01)
[2019-01-19] MEDS: HYDROcodone/ACETAMIN 5-325 MG TAB (NORCO/ VICODIN) PO PRN ×2 (09:08→21:01)
[2019-01-19] MEDS: INSULIN REGULAR, HUMAN 100 UNITS/ML, 10 ML VIAL (novoLIN R) SUBCUT PRN ×3 (11:30→21:04)
--- NOTE | 2019-01-19 11:31 | NUR ---
Accucheck: Blood sugar 226, covered with 4 units Novolin R per sliding scale. See eMAR.
[2019-01-19 12:22] VITALS: BP_SYST 108
--- NOTE | 2019-01-19 12:22 | NUR ---
Rounds: Patient in bed resting. Patient denies pain and discomfort. No SOB or respiratory distress noted. Morning medications tolerated well. Safety precautions in place and call light within reach. No needs at this time. Will continue to monitor.
--- NOTE | 2019-01-19 14:06 | NUR ---
Rounds: Patient in bed resting. No distress noted. Will continue to monitor.
[2019-01-19 16:02] VITALS: BP_SYST 95
--- NOTE | 2019-01-19 16:09 | NUR ---
Rounds: Patient in bed resting. Patient states "I'm very tired, I didn't sleep last night". Patient had multiple bowel movements throughout the night that prevented uninterrupted sleep. IV Zosyn started, no signs of infiltration. No pain or discomfort noted. No SOB or respiratory distress. Safety precautions in place and call light within reach. Will continue to monitor.
--- NOTE | 2019-01-19 17:13 | NUR ---
Accucheck: Blood sugar 252, covered with 6 units Novolin R per sliding scale. See eMAR.
--- NOTE | 2019-01-19 18:02 | NUR ---
Spoke to Family: Spoke to daughter Colette, made aware of patient's transfer back to [facility].
--- NOTE | 2019-01-19 18:07 | NUR ---
Called Report: Called [facility] and gave report to Colette VEGAS. Call back number given and all questions answered. Patient going back to room 504-B.
--- NOTE | 2019-01-19 18:16 | NUR ---
Called [facility]: Called [facility] and arranged pickup @[id number].
--- NOTE | 2019-01-19 18:52 | NUR ---
Closing Note: Patient in bed resting. Patient denies pain or discomfort. Breathing is even and unlabored on 2L nasal cannula with no distress noted. IV patent and intact, no signs of infiltration. Safety precautions in place; bed in lowest position, wheels locked, side rails x3, bed alarm activated and call light within reach. All needs met. Will endorse plan of care to NOC, nurse.
--- NOTE | 2019-01-19 19:15 | NUR ---
Opening Notes Received patient in bed resting. AAOx3 and can verbalize her needs. No complaints of pain or respiratory distress. Patient is pending D/C at 2130. Patient is prepped for discharge. Will administer IV antibiotics prior to leaving. Safety precaution in place. Patient is refusing to keep property assessment monitor on. Educated on its use but patient is adamant about removing it. Will monitor on rounds.
--- NOTE | 2019-01-19 20:35 | NUR ---
GAVE PACKAGE GAVE A PACKAGE TO RN @ 2034 I TOLD HIM TO DOUBLE CHECK ON IT
[2019-01-19 21:09] VITALS: BP_SYST 148
--- NOTE | 2019-01-19 21:58 | NUR ---
PATIENT D/C TO [facility] VIA BLS WITH 2 EMT. REPORT GIVEN WITH NO FURTHER QUESTIONS. IV IN PLACE RIGHT AC 18G. DOSE OF ZOSYN ANTIBIOTICS COMPLETED.
== END 2019-01-19 21:48 | DRG 193 ==
LOC: SED 12:45 → SIC 16:12 → EEVIPCON 16:12 → SIC 17:16 → STU 01-17 13:52
PROVIDERS: ADMIT Family Medicine; ATTEND Family Medicine
PROC: 5A09357 Assistance with Respiratory Ventilation, Less than 24 Consecutive Hours, Continuous Positive Airway Pressure (ICD-10-PCS; 2019-01-15)
PROC: 5A1D70Z Performance of Urinary Filtration, Intermittent, Less than 6 Hours Per Day (ICD-10-PCS; principal; 2019-01-17)
PROC: 0W9B3ZZ Drainage of Left Pleural Cavity, Percutaneous Approach (ICD-10-PCS; 2019-01-17)
PROC: 5A1D70Z Performance of Urinary Filtration, Intermittent, Less than 6 Hours Per Day (ICD-10-PCS; 2019-01-18)
DX: J18.1 Lobar pneumonia, unspecified organism (principal); E43 Unspecified severe protein-calorie malnutrition; J96.01 Acute respiratory failure with hypoxia; N18.6 End stage renal disease; I13.2 Hypertensive heart and chronic kidney disease with heart failure and with stage 5 chronic kidney disease, or end stage renal disease; E87.2 Acidosis; I50.30 Unspecified diastolic (congestive) heart failure; I69.354 Hemiplegia and hemiparesis following cerebral infarction affecting left non-dominant side; J90 Pleural effusion, not elsewhere classified; I24.8 Other forms of acute ischemic heart disease; G89.4 Chronic pain syndrome; D64.9 Anemia, unspecified; D69.6 Thrombocytopenia, unspecified; E11.22 Type 2 diabetes mellitus with diabetic chronic kidney disease; E11.3599 Type 2 diabetes mellitus with proliferative diabetic retinopathy without macular edema, unspecified eye; E11.42 Type 2 diabetes mellitus with diabetic polyneuropathy; E11.49 Type 2 diabetes mellitus with other diabetic neurological complication; F03.90 Unspecified dementia, unspecified severity, without behavioral disturbance, psychotic disturbance, mood disturbance, and anxiety; F32.9 Major depressive disorder, single episode, unspecified; G47.33 Obstructive sleep apnea (adult) (pediatric); I25.10 Atherosclerotic heart disease of native coronary artery without angina pectoris; E66.9 Obesity, unspecified; K72.90 Hepatic failure, unspecified without coma; E87.6 Hypokalemia; K21.9 Gastro-esophageal reflux disease without esophagitis; K74.60 Unspecified cirrhosis of liver; K76.0 Fatty (change of) liver, not elsewhere classified; Z79.4 Long term (current) use of insulin; Z87.891 Personal history of nicotine dependence; Z90.710 Acquired absence of both cervix and uterus; Z95.5 Presence of coronary angioplasty implant and graft; Z99.2 Dependence on renal dialysis; Z88.8 Allergy status to other drugs, medicaments and biological substances; Z88.5 Allergy status to narcotic agent; Z88.2 Allergy status to sulfonamides; Z79.899 Other long term (current) drug therapy; Z79.82 Long term (current) use of aspirin; Z74.01 Bed confinement status; Z68.37 Body mass index [BMI] 37.0-37.9, adult; Z90.49 Acquired absence of other specified parts of digestive tract; Z98.51 Tubal ligation status; Z99.3 Dependence on wheelchair; Z80.3 Family history of malignant neoplasm of breast; Z82.49 Family history of ischemic heart disease and other diseases of the circulatory system; Z83.3 Family history of diabetes mellitus
CPT/HCPCS: 32555; 36415; 36600; 71045; 71250-TC; 80048; 80053; 82140-TC; 82550-TC; 82803-TC; 82947-TC; 82962; 83605; 83880; 84157-TC; 84443-TC; 84484; 85025; 85610-TC; 85730-TC; 86710; 87040-TC; 87070-TC; 87081; 87086; 87116; 88108; 88305; 89051-TC; 89060-TC; 90935; 90937; 93005; 94640; 94660; 94664; 94760; 96365; 96375; 99291; C1729; G0378; J1815; J2060; J2543; J3480; J7030; J7050; J7612; J7620; P9046

== ENCOUNTER 2019-01-24 17:15 | Inpatient (IN) | payer OTHER, MEDICAID ==
[~2019-01-24] VITALS: Ht 157.5 cm; Wt 94.0 kg
[2019-01-24 17:15] VITALS: BP_SYST 116
[2019-01-24 18:08] LABS: HEMATOCRIT 29.5 % (36-48); HEMOGLOBIN 9.7 g/dL (12.0-16.0); MEAN CORPUSCULAR HEMOGLOBIN 33 pg (27-31); MEAN CORPUSCULAR HGB CONC 33 % (32-36); MEAN CORPUSCULAR VOLUME 100 fL (79.0-98.0); RED BLOOD CELL COUNT(AUTO) 2.94 MIL/uL (4.2-6.2); RED CELL DISTRIBUTION WIDTH 17.7 % (9.0-15.0); WHITE BLOOD COUNT (AUTO) 7.9 K/uL (4.8-10.8)
[2019-01-24 18:09] LABS: BASOPHILS % (AUTO) 0.5 % (0.0-2.0); EOSINOPHILS # (AUTO) 0.3 K/uL (0.0-0.4); EOSINOPHILS % (AUTO) 3.2 % (0.0-4.0); LYMPHOCYTES # (AUTO) 0.9 K/uL (1.0-5.5); LYMPHOCYTES % (AUTO) 11.9 % (20.5-51.5); MONOCYTES # (AUTO) 0.5 K/uL (0.0-1.0); MONOCYTES % (AUTO) 6.4 % (1.7-9.3); NEUTROPHILS # (AUTO) 6.2 K/uL (1.8-7.7); PLATELET COUNT (AUTO) 49 K/uL (130-430)
[2019-01-24 18:16] LABS: CALCIUM 8.4 mg/dL (8.4-11.0); CREATININE 2.72 mg/dL (0.55-1.30); POTASSIUM 3.1 mmol/L (3.5-5.1)
[2019-01-24 18:19] LABS: INR 1.2 (0.8-1.2); PROTHROMBIN TIME 12.1 SECS (9.5-12.5)
[2019-01-24 18:21] LABS: ALBUMIN 2.3 g/dL (3.4-4.8); TOTAL BILIRUBIN 1.3 mg/dL (0.0-1.0)
[2019-01-24] MEDS ORDERED: IPRATROPIUM BROM 0.5 MG/2.5 ML VIAL.NEB (ATROVENT) IH ONE (18:30)
[2019-01-24] MEDS ORDERED: ALBUTEROL SULFATE 0.083% 2.5 MG/3 ML VIAL.NEB IH ONE (18:30)
[2019-01-24] MEDS ORDERED: methylPREDNISolone SOD SUCC/PF 62.5 MG/ML VIAL IVP ONE (18:30)
[2019-01-24 19:28] VITALS: BP_SYST 105
[2019-01-24] MEDS ORDERED: DIPHENHYDRAMINE HCL 25 MG CAPSULE PO SCH (23:30)
[2019-01-24] MEDS ORDERED: LIDOCAINE PATCH 5% 1 EA TP SCH (23:30)
[2019-01-24] MEDS ORDERED: ONDANSETRON 4 MG ODT TAB PO SCH (23:30)
[2019-01-24] MEDS ORDERED: LevALBUTEROL HCL 1.25 MG/0.5 ML *CONC.* VIAL.NEB (XOPENEX CONC.) INH PRN (23:30)
[2019-01-24] MEDS ORDERED: HYDROcodone/ACETAMIN 5-325 MG TAB (NORCO/ VICODIN) PO SCH (23:30)
[2019-01-24 23:37] VITALS: BP_SYST 105
[2019-01-24] MEDS ORDERED: ACETAMINOPHEN 325 MG TABLET PO PRN (23:45)
[2019-01-25 00:10] VITALS: BP_SYST 122
[2019-01-25] MEDS ORDERED: LIDOCAINE PATCH 5% 1 EA TP PRN (04:00)
[2019-01-25] MEDS ORDERED: ONDANSETRON 4 MG ODT TAB PO PRN (04:00)
[2019-01-25] MEDS ORDERED: DIPHENHYDRAMINE HCL 25 MG CAPSULE PO PRN (04:00)
[2019-01-25] MEDS: HYDROcodone/ACETAMIN 5-325 MG TAB (NORCO/ VICODIN) PO PRN (04:36)
[2019-01-25] MEDS: INSULIN REGULAR, HUMAN 100 UNITS/ML, 10 ML VIAL (novoLIN R) SUBCUT PRN ×4 (06:41→21:25)
[2019-01-25 06:51] LABS: CALCIUM 8.5 mg/dL (8.4-11.0); CREATININE 3.55 mg/dL (0.55-1.30); POTASSIUM 3.5 mmol/L (3.5-5.1)
[2019-01-25] MEDS: LevALBUTEROL HCL 1.25 MG/0.5 ML *CONC.* VIAL.NEB (XOPENEX CONC.) INH SCH ×3 (07:11→23:05)
[2019-01-25] MEDS ORDERED: NON-FORMULARY MEDICATION (Sevelamer Carbonate (Renvela) 800 MG) PO SCH (08:00)
[2019-01-25 08:12] VITALS: BP_SYST 112
[2019-01-25 08:24] LABS: HEMATOCRIT 28.2 % (36-48); HEMOGLOBIN 9.2 g/dL (12.0-16.0); RED BLOOD CELL COUNT(AUTO) 2.74 MIL/uL (4.2-6.2); WHITE BLOOD COUNT (AUTO) 6.8 K/uL (4.8-10.8)
[2019-01-25 08:25] LABS: LYMPHOCYTES % (AUTO) 7.3 % (20.5-51.5); MEAN CORPUSCULAR HEMOGLOBIN 34 pg (27-31); MEAN CORPUSCULAR HGB CONC 33 % (32-36); MEAN CORPUSCULAR VOLUME 103 fL (79.0-98.0); MONOCYTES % (AUTO) 1.9 % (1.7-9.3); PLATELET COUNT (AUTO) 50 K/uL (130-430); RED CELL DISTRIBUTION WIDTH 17.7 % (9.0-15.0)
[2019-01-25 08:26] LABS: BASOPHILS % (AUTO) 0.2 % (0.0-2.0); LYMPHOCYTES # (AUTO) 0.5 K/uL (1.0-5.5); MONOCYTES # (AUTO) 0.1 K/uL (0.0-1.0); NEUTROPHILS # (AUTO) 6.2 K/uL (1.8-7.7)
[2019-01-25] MEDS ORDERED: CHOLECALCIFEROL 2000 UNIT PO SCH (09:00)
[2019-01-25] MEDS: hydrALAZINE HCL 25 MG TABLET PO SCH ×2 (09:00→20:35)
[2019-01-25] MEDS: cloNIDine HCL 0.1 MG TABLET PO SCH (09:00)
[2019-01-25] MEDS: DOCUSATE SODIUM 250 MG CAPSULE PO SCH (09:33)
[2019-01-25] MEDS: GABAPENTIN 100 MG CAPSULE PO SCH (09:33)
[2019-01-25] MEDS: SEVELAMER HCL 800 MG TABLET PO SCH ×3 (09:33→17:17)
[2019-01-25] MEDS: NEPHROVITE, (FOLIC ACID/VITAMIN B COMP W-C 1 TAB) PO SCH (09:33)
[2019-01-25] MEDS: SERTRALINE HCL 50 MG TABLET PO SCH (09:34)
[2019-01-25] MEDS: FOLIC ACID 1 MG TABLET PO SCH (09:34)
[2019-01-25] MEDS: ASPIRIN 81 MG TABLET(ECOTRIN) PO SCH (09:35)
[2019-01-25] MEDS ORDERED: CHOLECALCIFEROL (VITAMIN D3) 2,000 UNIT TABLET PO ONE (10:00)
[2019-01-25] MEDS: INSULIN Lispro Prot/Lispro MIX 75-25, 100 UNITS/ML, 10 ML VIAL SUBCUT SCH ×2 (10:03→21:24)
[2019-01-25 12:16] VITALS: BP_SYST 117
[2019-01-25 12:16] LABS: NEUTROPHILS % (AUTO) 90.6 % (40.0-70.0)
[2019-01-25 15:09] VITALS: BP_SYST 123
[2019-01-25 20:15] VITALS: BP_SYST 124
[2019-01-25] MEDS: ZOLPIDEM TARTRATE 5 MG TABLET PO PRN (21:31)
[2019-01-26 00:29] VITALS: BP_SYST 113
[2019-01-26] MEDS ORDERED: cefTRIAXone 1 GM in D5W 50 ML IV SCH (01:00)
[2019-01-26] MEDS ORDERED: AZITHROMYCIN 500 MG in NS 250 ML IV SCH (01:00)
[2019-01-26 07:33] LABS: CALCIUM 8.6 mg/dL (8.4-11.0); CREATININE 4.3 mg/dL (0.55-1.30); POTASSIUM 3.3 mmol/L (3.5-5.1)
[2019-01-26] MEDS: LevALBUTEROL HCL 1.25 MG/0.5 ML *CONC.* VIAL.NEB (XOPENEX CONC.) INH SCH ×3 (07:41→23:11)
[2019-01-26 07:42] LABS: ALBUMIN 2.2 g/dL (3.4-4.8); TOTAL BILIRUBIN 0.9 mg/dL (0.0-1.0)
[2019-01-26 08:16] VITALS: BP_SYST 103
[2019-01-26] MEDS: SEVELAMER HCL 800 MG TABLET PO SCH ×3 (08:37→17:22)
[2019-01-26] MEDS: NEPHROVITE, (FOLIC ACID/VITAMIN B COMP W-C 1 TAB) PO SCH (08:37)
[2019-01-26] MEDS: GABAPENTIN 100 MG CAPSULE PO SCH (08:37)
[2019-01-26] MEDS: FOLIC ACID 1 MG TABLET PO SCH (08:37)
[2019-01-26] MEDS: CHOLECALCIFEROL (VITAMIN D3) 2,000 UNIT TABLET PO SCH (08:37)
[2019-01-26] MEDS: ASPIRIN 81 MG TABLET(ECOTRIN) PO SCH (08:37)
[2019-01-26] MEDS: SERTRALINE HCL 50 MG TABLET PO SCH (08:37)
[2019-01-26] MEDS: DOCUSATE SODIUM 250 MG CAPSULE PO SCH (08:37)
[2019-01-26] MEDS: cloNIDine HCL 0.1 MG TABLET PO SCH (08:38)
[2019-01-26] MEDS: hydrALAZINE HCL 25 MG TABLET PO SCH ×2 (08:38→20:50)
[2019-01-26] MEDS: INSULIN Lispro Prot/Lispro MIX 75-25, 100 UNITS/ML, 10 ML VIAL SUBCUT SCH ×2 (08:44→20:53)
[2019-01-26 08:58] LABS: HEMATOCRIT 28.4 % (36-48); HEMOGLOBIN 9.2 g/dL (12.0-16.0); MEAN CORPUSCULAR HEMOGLOBIN 33 pg (27-31); MEAN CORPUSCULAR HGB CONC 32 % (32-36); MEAN CORPUSCULAR VOLUME 102 fL (79.0-98.0); RED BLOOD CELL COUNT(AUTO) 2.78 MIL/uL (4.2-6.2); WHITE BLOOD COUNT (AUTO) 9.2 K/uL (4.8-10.8)
[2019-01-26 08:59] LABS: BASOPHILS % (AUTO) 0.3 % (0.0-2.0); EOSINOPHILS # (AUTO) 0.2 K/uL (0.0-0.4); EOSINOPHILS % (AUTO) 2.2 % (0.0-4.0); LYMPHOCYTES # (AUTO) 1.3 K/uL (1.0-5.5); MONOCYTES # (AUTO) 0.6 K/uL (0.0-1.0); NEUTROPHILS # (AUTO) 7.1 K/uL (1.8-7.7); NEUTROPHILS % (AUTO) 76.5 % (40.0-70.0); PLATELET COUNT (AUTO) 68 K/uL (130-430); RED CELL DISTRIBUTION WIDTH 18.6 % (9.0-15.0)
[2019-01-26] MEDS: INSULIN REGULAR, HUMAN 100 UNITS/ML, 10 ML VIAL (novoLIN R) SUBCUT PRN ×3 (11:40→20:52)
[2019-01-26 12:24] VITALS: BP_SYST 112
[2019-01-26] MEDS ORDERED: DOCUSATE SODIUM 100 MG CAPSULE PO ONE (15:15)
[2019-01-26] MEDS ORDERED: MILK OF MAGNESIA 30 ML UDC PO PRN (15:15)
[2019-01-26 16:41] VITALS: BP_SYST 118
[2019-01-26 20:00] VITALS: BP_SYST 118
[2019-01-26] MEDS: cefTRIAXone 1 GM in D5W 50 ML IV SCH (20:50)
[2019-01-26] MEDS: ZOLPIDEM TARTRATE 5 MG TABLET PO PRN (20:54)
[2019-01-26] MEDS: AZITHROMYCIN 500 MG in NS 250 ML IV SCH (21:59)
[2019-01-27 01:29] VITALS: BP_SYST 116
[2019-01-27] MEDS: INSULIN REGULAR, HUMAN 100 UNITS/ML, 10 ML VIAL (novoLIN R) SUBCUT PRN ×3 (06:14→20:26)
[2019-01-27] MEDS: LevALBUTEROL HCL 1.25 MG/0.5 ML *CONC.* VIAL.NEB (XOPENEX CONC.) INH SCH ×3 (07:54→23:00)
[2019-01-27 07:55] VITALS: BP_SYST 122
[2019-01-27] MEDS: DOCUSATE SODIUM 100 MG CAPSULE PO SCH (09:00)
[2019-01-27] MEDS: GABAPENTIN 100 MG CAPSULE PO SCH (09:47)
[2019-01-27] MEDS: NEPHROVITE, (FOLIC ACID/VITAMIN B COMP W-C 1 TAB) PO SCH (09:47)
[2019-01-27] MEDS: SEVELAMER HCL 800 MG TABLET PO SCH ×3 (09:48→17:06)
[2019-01-27] MEDS: ASPIRIN 81 MG TABLET(ECOTRIN) PO SCH (09:48)
[2019-01-27] MEDS: hydrALAZINE HCL 25 MG TABLET PO SCH ×2 (09:48→20:24)
[2019-01-27] MEDS: DOCUSATE SODIUM 250 MG CAPSULE PO SCH (09:48)
[2019-01-27] MEDS: FOLIC ACID 1 MG TABLET PO SCH (09:48)
[2019-01-27] MEDS: cloNIDine HCL 0.1 MG TABLET PO SCH (09:48)
[2019-01-27] MEDS: SERTRALINE HCL 50 MG TABLET PO SCH (09:49)
[2019-01-27] MEDS: INSULIN Lispro Prot/Lispro MIX 75-25, 100 UNITS/ML, 10 ML VIAL SUBCUT SCH ×2 (09:52→20:25)
[2019-01-27] MEDS: CHOLECALCIFEROL (VITAMIN D3) 2,000 UNIT TABLET PO SCH (09:59)
[2019-01-27 12:32] VITALS: BP_SYST 117
[2019-01-27] MEDS: HYDROcodone/ACETAMIN 5-325 MG TAB (NORCO/ VICODIN) PO PRN ×2 (15:08→23:57)
[2019-01-27 16:33] VITALS: BP_SYST 108
[2019-01-27 20:00] VITALS: BP_SYST 118
[2019-01-27] MEDS: cefTRIAXone 1 GM in D5W 50 ML IV SCH (20:23)
[2019-01-27] MEDS: ZOLPIDEM TARTRATE 5 MG TABLET PO PRN (20:23)
[2019-01-27] MEDS: AZITHROMYCIN 500 MG in NS 250 ML IV SCH (21:27)
[2019-01-28 00:30] VITALS: BP_SYST 95
[2019-01-28] MEDS: INSULIN REGULAR, HUMAN 100 UNITS/ML, 10 ML VIAL (novoLIN R) SUBCUT PRN ×2 (06:09→12:22)
[2019-01-28] MEDS: LevALBUTEROL HCL 1.25 MG/0.5 ML *CONC.* VIAL.NEB (XOPENEX CONC.) INH SCH ×2 (07:18→15:19)
[2019-01-28 07:38] VITALS: BP_SYST 102
[2019-01-28] MEDS: DOCUSATE SODIUM 100 MG CAPSULE PO SCH (09:00)
[2019-01-28] MEDS: DOCUSATE SODIUM 250 MG CAPSULE PO SCH (09:00)
[2019-01-28] MEDS: ASPIRIN 81 MG TABLET(ECOTRIN) PO SCH (09:38)
[2019-01-28] MEDS: hydrALAZINE HCL 25 MG TABLET PO SCH (09:38)
[2019-01-28] MEDS: cloNIDine HCL 0.1 MG TABLET PO SCH (09:39)
[2019-01-28] MEDS: FOLIC ACID 1 MG TABLET PO SCH (09:39)
[2019-01-28] MEDS: GABAPENTIN 100 MG CAPSULE PO SCH (09:39)
[2019-01-28] MEDS: SEVELAMER HCL 800 MG TABLET PO SCH ×2 (09:39→12:16)
[2019-01-28] MEDS: NEPHROVITE, (FOLIC ACID/VITAMIN B COMP W-C 1 TAB) PO SCH (09:39)
[2019-01-28] MEDS: SERTRALINE HCL 50 MG TABLET PO SCH (09:40)
[2019-01-28] MEDS: CHOLECALCIFEROL (VITAMIN D3) 2,000 UNIT TABLET PO SCH (09:40)
[2019-01-28] MEDS: INSULIN Lispro Prot/Lispro MIX 75-25, 100 UNITS/ML, 10 ML VIAL SUBCUT SCH (09:42)
[2019-01-28 11:42] VITALS: BP_SYST 105
[2019-01-28 15:58] VITALS: BP_SYST 105
[2019-01-28 16:31] VITALS: BP_SYST 89
== END 2019-01-28 16:40 | DRG 177 ==
LOC: SED 17:15 → STU 18:46
PROVIDERS: ADMIT Family Medicine; ATTEND Family Medicine
PROC: 5A1D70Z Performance of Urinary Filtration, Intermittent, Less than 6 Hours Per Day (ICD-10-PCS; principal; 2019-01-27)
DX: J15.6 Pneumonia due to other Gram-negative bacteria (principal); E43 Unspecified severe protein-calorie malnutrition; N18.6 End stage renal disease; I50.33 Acute on chronic diastolic (congestive) heart failure; I13.2 Hypertensive heart and chronic kidney disease with heart failure and with stage 5 chronic kidney disease, or end stage renal disease; D69.6 Thrombocytopenia, unspecified; E11.22 Type 2 diabetes mellitus with diabetic chronic kidney disease; F03.90 Unspecified dementia, unspecified severity, without behavioral disturbance, psychotic disturbance, mood disturbance, and anxiety; K74.60 Unspecified cirrhosis of liver; E11.40 Type 2 diabetes mellitus with diabetic neuropathy, unspecified; J44.9 Chronic obstructive pulmonary disease, unspecified; Z79.4 Long term (current) use of insulin; Z79.82 Long term (current) use of aspirin; Z86.73 Personal history of transient ischemic attack (TIA), and cerebral infarction without residual deficits; Z90.710 Acquired absence of both cervix and uterus; Z87.891 Personal history of nicotine dependence; Z99.2 Dependence on renal dialysis; Z99.3 Dependence on wheelchair; Z99.81 Dependence on supplemental oxygen; Z88.9 Allergy status to unspecified drugs, medicaments and biological substances; Z90.49 Acquired absence of other specified parts of digestive tract; Z68.37 Body mass index [BMI] 37.0-37.9, adult
CPT/HCPCS: 36415; 71045; 80048; 80053; 82550-TC; 82962; 83036; 83605; 83880; 84484; 85025; 85610-TC; 85730-TC; 87040-TC; 87081; 90935; 93005; 94640; 94760; 96374; 99285; G0378; J0456; J0696; J1815; J2930; J7030; J7050; J7060; J7612; J7613

== ENCOUNTER 2019-02-12 10:24 | Emergency (ER) | payer OTHER, MEDICAID ==
[~2019-02-12] VITALS: Ht 157.5 cm; Wt 88.5 kg
[2019-02-12 10:24] VITALS: BP_SYST 134
--- NOTE | 2019-02-12 10:24 | NUR ---
BROUGHT IN BY [facility], PLACED IN BED #4 AND TRIAGED. REPORT GIVEN TO MATTY
--- NOTE | 2019-02-12 10:45 | NUR ---
Patient presented to ER with shortness of breath via ACLS. Patient AA&Ox4, a febrile, skin pink, shortness of breath, respirations equal bilat. Pt placed on monitor and EKG complete upon arrival. Patient states she was stable when she arrived at the Dialysis center but shortly after starting dialysis she felt short of breath. The staff called for ambulance.
--- NOTE | 2019-02-12 11:35 | NUR ---
ER Dr. Torres at bedside examining patient.
--- NOTE | 2019-02-12 11:46 | NUR ---
PATIENT GETTING CHEST X RAY IN BED.
--- NOTE | 2019-02-12 12:00 | NUR ---
Venipuncture at bedside for lab speciman.
[2019-02-12 12:12] LABS: BASOPHILS % (AUTO) 0.7 % (0.0-2.0); EOSINOPHILS # (AUTO) 0.3 K/uL (0.0-0.4); EOSINOPHILS % (AUTO) 4.2 % (0.0-4.0); HEMATOCRIT 31.8 % (36-48); HEMOGLOBIN 10.1 g/dL (12.0-16.0); LYMPHOCYTES # (AUTO) 0.8 K/uL (1.0-5.5); LYMPHOCYTES % (AUTO) 12.5 % (20.5-51.5); MEAN CORPUSCULAR HEMOGLOBIN 33 pg (27-31); MEAN CORPUSCULAR HGB CONC 32 % (32-36); MEAN CORPUSCULAR VOLUME 103 fL (79.0-98.0); MONOCYTES # (AUTO) 0.6 K/uL (0.0-1.0); MONOCYTES % (AUTO) 9.3 % (1.7-9.3); NEUTROPHILS % (AUTO) 73.3 % (40.0-70.0); PLATELET COUNT (AUTO) 62 K/uL (130-430); RED BLOOD CELL COUNT(AUTO) 3.09 MIL/uL (4.2-6.2); RED CELL DISTRIBUTION WIDTH 18.9 % (9.0-15.0); WHITE BLOOD COUNT (AUTO) 6.8 K/uL (4.8-10.8)
--- NOTE | 2019-02-12 12:16 | NUR ---
Popeye elizondo in ED - 02/12/19 at 1217 by SDEDTD LUPILLO Torres at bedside examining patient.
[2019-02-12 12:21] LABS: CALCIUM 8.6 mg/dL (8.4-11.0); CREATININE 7.06 mg/dL (0.55-1.30); POTASSIUM 3.6 mmol/L (3.5-5.1)
[2019-02-12 12:24] LABS: INR 1.1 (0.8-1.2); PROTHROMBIN TIME 11.4 SECS (9.5-12.5)
[2019-02-12 12:25] LABS: ALBUMIN 2.4 g/dL (3.4-4.8); TOTAL BILIRUBIN 1.2 mg/dL (0.0-1.0)
--- NOTE | 2019-02-12 12:55 | NUR ---
ER Dr. Torres at bedside discussing admission with patient.
--- NOTE | 2019-02-12 12:57 | NUR ---
Dr. Torres at bedside discussing treatment Patient expressed wishes to not be admitted and to be discharged against medical advice.
--- NOTE | 2019-02-12 13:05 | NUR ---
Notified daughter of pt in ER per patient. I was unable to reach maria t, left Voicemail message for Maria T.
--- NOTE | 2019-02-12 13:54 | NUR ---
Daughter ofn patient, Raya returned call, Dr Torres gave update on patient care.
--- NOTE | 2019-02-12 14:19 | NUR ---
called pt's daughter to clarify where pt lives. pt's daughter stated that she lives at [facility]: [id number] [id number].
[2019-02-12 15:00] VITALS: BP_SYST 122
--- NOTE | 2019-02-12 15:00 | NUR ---
Patient discharged AMA
--- NOTE | 2019-02-12 15:01 | NUR ---
Libia simons picked up patient for transport
== END 2019-02-12 15:00 | disposition left against medical advice (07) ==
LOC: SED 10:24
DX: R91.1 Solitary pulmonary nodule (principal); I13.0 Hypertensive heart and chronic kidney disease with heart failure and stage 1 through stage 4 chronic kidney disease, or unspecified chronic kidney disease; E11.22 Type 2 diabetes mellitus with diabetic chronic kidney disease; E11.40 Type 2 diabetes mellitus with diabetic neuropathy, unspecified; N18.9 Chronic kidney disease, unspecified; I50.9 Heart failure, unspecified; K21.9 Gastro-esophageal reflux disease without esophagitis; J44.9 Chronic obstructive pulmonary disease, unspecified; Z86.2 Personal history of diseases of the blood and blood-forming organs and certain disorders involving the immune mechanism; Z99.2 Dependence on renal dialysis; Z88.1 Allergy status to other antibiotic agents; Z88.6 Allergy status to analgesic agent; Z88.8 Allergy status to other drugs, medicaments and biological substances; Z91.048 Other nonmedicinal substance allergy status; Z79.82 Long term (current) use of aspirin; Z79.899 Other long term (current) drug therapy
CPT/HCPCS: 36415; 71045; 80053; 82550-TC; 83880; 84484; 85025; 85610-TC; 85730-TC; 93005; 99284